=== PATIENT | female | born 1950 | race Caucasian/White ===

== ENCOUNTER → 2016-09-06 | Outpatient (CLI) | payer MEDICARE ==
[~2016-09-06] MED LIST: ALPRAZOLAM0.5 M3 PO; ANAPROX DS550 MG PO; ANTIVERT/2525 M1 PO; AVIDOXY100 MG PO; AVPAK AZITHROM250 MG PO; CARDIZEM LA240 MG PO; CITALOPRAM10 MG PO; CLINDAMYCIN HC300 MG PO; COLCHICINE0.6 M1 PO; COLSALIDE IMPR0.6 MG PO; COREG25 MG PO; COUMADIN5 M2; DIFLUCAN100 MG PO; DIGITEK0.25 MG PO; DIGOX0.125 MG PO; DILTIAZEM ER240 MG PO; ELIQUIS5 M1 PO; FUROSEMIDE40 MG PO; HYDROCODONE BIT1 T11 PO; INDOMETHACIN50 MG PO; K + POTASSIUM20 MEQ PO; K-TAB ER8 MEQ PO; LASIX20 MG PO; LASIX40 MG PO; LEVAQUIN750 MG PO; LISINOPRIL40 MG PO; LOVASTATIN10 MG PO; LOVENOX150 MG/ML SC; MYCOLOG CREAM 115 GM PO; NORCO 5-325 TA1 EACH PO; NYSTATIN CREAM15 GM T; OSCAL/D,OYSTER250 MG PO; PREDNICOT20 MG PO; PREDNISONE20 M1 PO; PREDNISONE20 MG PO; PREDNISONE5 MG PO; PROAIR HFA0.09 MG/AC IH; SOTALOL80 MG PO; VIBRAMYCIN100 MG PO; VITAMIN D2400 IU PO; WARFARIN SOD5 MG PO; WARFARIN SODIUM5 MG PO; XOPENEX0.63 MG INH; ZOFRAN ODT4 MG SL; ZOFRAN4 MG PO; ZYRTEC10 M3 PO; [UNRECOGNIZED DRUG - OTHER] PO; [UNRECOGNIZED DRUG - OTHER] PO
== END | disposition home or self-care (01) ==
LOC: RAD 07:31
DX: M19.011 Primary osteoarthritis, right shoulder (principal)

== ENCOUNTER 2016-11-21 08:34 | Emergency (ER) | payer MEDICARE ==
[~2016-11-21] VITALS: Ht 180.3 cm; Wt 135.6 kg
[2016-11-21 08:51] VITALS: BP 146/84
[2016-11-21 09:27] LABS: BASO % 0.6 % (0.0-1.0); EOS # 0.2 10*3/uL (0.0-0.4); EOS % 3.3 % (1.0-4.0); HEMATOCRIT 44.2 % (37.0-47.0); HEMOGLOBIN 14.7 g/dl (12.0-16.0); LYMPH # 1.8 10*3/uL (1.3-4.4); LYMPH % 25.6 % (27.0-41.0); MEAN CELL VOLUME 97.1 fl (81.0-99.0); MEAN CORPUSCULAR HGB 32.3 pg (27.0-31.0); MEAN CORPUSCULAR HGB CONC 33.3 g/dl (33.0-37.0); MEAN PLATELET VOLUME 10.2 fl (9.6-12.3); MONO # 0.6 10*3/uL (0.1-1.0); MONO % 8.9 % (3.0-9.0); NEUT # 4.3 10*3/uL (2.3-7.9); NEUT % 61.3 % (47.0-73.0); PLATELET COUNT AUTOMATED 210 10*3/uL (130-400); RED BLOOD COUNT 4.55 10*6/uL (4.10-5.10); RED CELL DISTRI WIDTH 13.1 % (0-14.5); WHITE BLOOD COUNT 7.1 10*3/uL (4.8-10.8)
[2016-11-21 09:32] LABS: PROTHROMBIN TIME 10.9 SECONDS (9.0-12.4)
[2016-11-21 09:39] LABS: ALBUMIN 3.2 gm/dl (3.1-4.5); ALKALINE PHOSPHATASE 100 U/L (45-117); BILIRUBIN, TOTAL 0.5 mg/dl (0.2-1.0); BUN 14 mg/dl (7-24); C-REACTIVE PROTEIN 0.48 MG/DL (0-0.3); CARBON DIOXIDE 27 mmol/L (21-32); CHLORIDE 110 mmol/L (98-107); EST GLOM FILT AFRICAN AMERICAN > 60 ml/min; GLUCOSE 83 mg/dL (65-99); MAGNESIUM 2.2 mg/dL (1.5-2.1); POTASSIUM 4.2 mmol/L (3.5-5.1); SGOT/AST 12 IU/L (3-35); SGPT/ALT 13 U/L (12-78); SODIUM 141 mmol/L (136-145); TOTAL PROTEIN 6.6 gm/dL (6.4-8.2); URIC ACID 6.1 mg/dL (2.6-6.0)
[2016-11-21] MEDS ORDERED: HYDROCODONE BIT1 T11 PO (11:20)
[2016-11-21] MEDS ORDERED: PREDNISONE20 M1 PO (11:20)
== END 2016-11-21 11:41 | disposition home or self-care (01) ==
LOC: ED 08:34
PROVIDERS: Emergency Medicine
DX: M79.671 Pain in right foot (principal); M10.9 Gout, unspecified; I48.91 Unspecified atrial fibrillation; Z88.0 Allergy status to penicillin; Z88.1 Allergy status to other antibiotic agents; Z88.8 Allergy status to other drugs, medicaments and biological substances; Z79.899 Other long term (current) drug therapy

== ENCOUNTER 2017-06-14 16:30 | Emergency (ER) | payer MEDICARE ==
[~2017-06-14] VITALS: Ht 154.9 cm; Wt 135.6 kg
[2017-06-14 17:37] LABS: BASO # 0.1 10*3/uL (0.0-0.1); BASO % 0.7 % (0.0-1.0); EOS # 0.2 10*3/uL (0.0-0.4); HEMATOCRIT 45.2 % (37.0-47.0); HEMOGLOBIN 15.2 g/dl (12.0-16.0); LYMPH # 1.4 10*3/uL (1.3-4.4); LYMPH % 15.7 % (27.0-41.0); MEAN CELL VOLUME 94.4 fl (81.0-99.0); MEAN CORPUSCULAR HGB 31.7 pg (27.0-31.0); MEAN CORPUSCULAR HGB CONC 33.6 g/dl (33.0-37.0); MEAN PLATELET VOLUME 10.2 fl (9.6-12.3); MONO # 0.9 10*3/uL (0.1-1.0); MONO % 10.7 % (3.0-9.0); NEUT # 6.1 10*3/uL (2.3-7.9); NEUT % 70.6 % (47.0-73.0); PLATELET COUNT AUTOMATED 200 10*3/uL (130-400); RED BLOOD COUNT 4.79 10*6/uL (4.10-5.10); RED CELL DISTRI WIDTH 13.9 % (0-14.5); WHITE BLOOD COUNT 8.6 10*3/uL (4.8-10.8)
[2017-06-14 17:48] LABS: ACT PARTIAL THROMBO TIME 24.4 SECONDS (20.8-31.5)
[2017-06-14 17:53] LABS: ALBUMIN 3.6 gm/dl (3.1-4.5); ALKALINE PHOSPHATASE 96 U/L (45-117); BUN 12 mg/dl (7-24); CHLORIDE 102 mmol/L (98-107); CREATININE 0.94 mg/dL (0.55-1.02); SGOT/AST 11 IU/L (3-35); SGPT/ALT 18 U/L (12-78); SODIUM 138 mmol/L (136-145); TOTAL PROTEIN 6.9 gm/dL (6.4-8.2); TROPONIN I < 0.015 ng/ml (<0.045)
[2017-06-14 19:37] VITALS: BP 163/82
== END 2017-06-14 19:13 | disposition home or self-care (01) ==
LOC: ED 16:30
PROVIDERS: Emergency Medicine
DX: R05 Cough (principal); I48.91 Unspecified atrial fibrillation; M10.9 Gout, unspecified; Z79.899 Other long term (current) drug therapy; Z88.0 Allergy status to penicillin; Z90.710 Acquired absence of both cervix and uterus; Z98.890 Other specified postprocedural states; Z90.49 Acquired absence of other specified parts of digestive tract; Z87.01 Personal history of pneumonia (recurrent); Z88.8 Allergy status to other drugs, medicaments and biological substances; Z88.1 Allergy status to other antibiotic agents; Z95.0 Presence of cardiac pacemaker

== ENCOUNTER → 2017-08-03 | Outpatient (CLI) | payer MEDICARE ==
[~2017-08-03] MED LIST changes: +DOXYCYCLINE100 M3 PO; +MEDROL DOSEPAK4 MG PO; +TESSALON PERLE100 M1 PO
== END | disposition home or self-care (01) ==
LOC: RAD 12:38 → MAMMO 13:30
DX: Z13.820 Encounter for screening for osteoporosis (principal); E55.9 Vitamin D deficiency, unspecified; Z78.0 Asymptomatic menopausal state; Z90.722 Acquired absence of ovaries, bilateral

== ENCOUNTER 2017-08-06 10:32 | Emergency (ER) | payer MEDICARE ==
[~2017-08-06] VITALS: Ht 175.2 cm; Wt 113.4 kg
[~2017-08-06 10:32] MED LIST changes: -DOXYCYCLINE100 M3 PO; -MEDROL DOSEPAK4 MG PO; -TESSALON PERLE100 M1 PO
[2017-08-06 11:03] VITALS: BP 120/72
[2017-08-06 11:10] LABS: BASO # 0.1 10*3/uL (0.0-0.1); BASO % 0.4 % (0.0-1.0); EOS # 0.3 10*3/uL (0.0-0.4); EOS % 2.5 % (1.0-4.0); HEMATOCRIT 46.1 % (37.0-47.0); HEMOGLOBIN 15.2 g/dl (12.0-16.0); LYMPH % 17.2 % (27.0-41.0); MEAN CELL VOLUME 94.5 fl (81.0-99.0); MEAN CORPUSCULAR HGB 31.1 pg (27.0-31.0); MEAN PLATELET VOLUME 10.4 fl (9.6-12.3); MONO % 8.7 % (3.0-9.0); NEUT # 8.3 10*3/uL (2.3-7.9); NEUT % 70.9 % (47.0-73.0); PLATELET COUNT AUTOMATED 233 10*3/uL (130-400); RED BLOOD COUNT 4.88 10*6/uL (4.10-5.10); RED CELL DISTRI WIDTH 13.3 % (0-14.5); WHITE BLOOD COUNT 11.6 10*3/uL (4.8-10.8)
[2017-08-06 11:22] LABS: ALBUMIN 3.4 gm/dl (3.1-4.5); ALKALINE PHOSPHATASE 95 U/L (45-117); BUN 11 mg/dl (7-24); CHLORIDE 102 mmol/L (98-107); CREATININE 0.97 mg/dL (0.55-1.02); POTASSIUM 4.1 mmol/L (3.5-5.1); SGOT/AST 9 IU/L (3-35); SGPT/ALT 13 U/L (12-78); SODIUM 138 mmol/L (136-145); TOTAL PROTEIN 7.2 gm/dL (6.4-8.2)
[2017-08-06] MEDS ORDERED: DOXYCYCLINE100 M3 PO (11:51)
[2017-08-06] MEDS ORDERED: TESSALON PERLE100 M1 PO (11:51)
[2017-08-06] MEDS ORDERED: MEDROL DOSEPAK4 MG PO (11:51)
== END 2017-08-06 11:57 | disposition home or self-care (01) ==
LOC: ED 10:32
PROVIDERS: Nurse Practitioner Family
DX: J01.00 Acute maxillary sinusitis, unspecified (principal); R09.81 Nasal congestion; R05 Cough; J06.9 Acute upper respiratory infection, unspecified; I50.9 Heart failure, unspecified; Z90.710 Acquired absence of both cervix and uterus; Z98.890 Other specified postprocedural states; Z90.49 Acquired absence of other specified parts of digestive tract; Z79.899 Other long term (current) drug therapy; Z88.0 Allergy status to penicillin; Z88.8 Allergy status to other drugs, medicaments and biological substances

== ENCOUNTER 2017-10-23 16:24 | Emergency (ER) | payer MEDICARE ==
[~2017-10-23] VITALS: Ht 180.3 cm; Wt 137.0 kg
[~2017-10-23 16:24] MED LIST changes: +DOXYCYCLINE100 M3 PO; +MEDROL DOSEPAK4 MG PO; +TESSALON PERLE100 M1 PO
[2017-10-23 16:26] VITALS: BP 112/73
[2017-10-23] MEDS ORDERED: NORCO 5-325 TA1 EACH PO (18:54)
== END 2017-10-23 19:04 | disposition home or self-care (01) ==
LOC: ED 16:24
DX: S49.91XA Unspecified injury of right shoulder and upper arm, initial encounter (principal); S59.901A Unspecified injury of right elbow, initial encounter; I48.91 Unspecified atrial fibrillation; I50.9 Heart failure, unspecified; Z90.710 Acquired absence of both cervix and uterus; Z98.890 Other specified postprocedural states; Z90.49 Acquired absence of other specified parts of digestive tract; Z79.899 Other long term (current) drug therapy; Z88.0 Allergy status to penicillin; Z88.1 Allergy status to other antibiotic agents; Z88.8 Allergy status to other drugs, medicaments and biological substances; W07.XXXA Fall from chair, initial encounter; Y93.89 Activity, other specified; Y92.89 Other specified places as the place of occurrence of the external cause; Y99.9 Unspecified external cause status

== ENCOUNTER 2018-02-19 14:47 | Emergency (ER) | payer MEDICARE ==
[~2018-02-19] VITALS: Ht 180.3 cm; Wt 136.1 kg
[~2018-02-19 14:47] MED LIST changes: +MACROBID100 M1 PO
[2018-02-19 15:41] LABS: BASO # 0.1 10*3/uL (0.0-0.1); BASO % 0.7 % (0.0-1.0); EOS # 0.4 10*3/uL (0.0-0.4); EOS % 5.4 % (1.0-4.0); HEMOGLOBIN 14.9 g/dl (12.0-16.0); LYMPH # 2.3 10*3/uL (1.3-4.4); LYMPH % 33.4 % (27.0-41.0); MEAN CELL VOLUME 94.9 fl (81.0-99.0); MEAN CORPUSCULAR HGB 31.4 pg (27.0-31.0); MEAN CORPUSCULAR HGB CONC 33.1 g/dl (33.0-37.0); MEAN PLATELET VOLUME 10.3 fl (9.6-12.3); MONO # 0.7 10*3/uL (0.1-1.0); MONO % 9.5 % (3.0-9.0); NEUT # 3.5 10*3/uL (2.3-7.9); NEUT % 50.9 % (47.0-73.0); PLATELET COUNT AUTOMATED 200 10*3/uL (130-400); RED BLOOD COUNT 4.74 10*6/uL (4.10-5.10); RED CELL DISTRI WIDTH 13.5 % (0-14.5); WHITE BLOOD COUNT 6.8 10*3/uL (4.8-10.8)
[2018-02-19 15:55] LABS: ALBUMIN 3.6 gm/dl (3.1-4.5); ALKALINE PHOSPHATASE 95 U/L (45-117); BUN 14 mg/dl (7-24); CHLORIDE 105 mmol/L (98-107); CREATININE 0.96 mg/dL (0.55-1.02); POTASSIUM 4.5 mmol/L (3.5-5.1); SGOT/AST 13 IU/L (3-35); SGPT/ALT 18 U/L (12-78); SODIUM 139 mmol/L (136-145); TOTAL PROTEIN 6.9 gm/dL (6.4-8.2)
[2018-02-19 16:15] LABS: BILIRUBIN NEGATIVE (NEGATIVE); BLOOD 3+ (NEGATIVE); CLARITY CLOUDY (CLEAR); COLOR BROWN (YELLOW); GLUCOSE NEGATIVE (NEGATIVE); KETONE NEGATIVE (NEGATIVE); LEUKO ESTERASE 1+ (NEGATIVE); NITRITE NEGATIVE (NEGATIVE); SPECIFIC GRAVITY 1.015 (1.005-1.030); UROBILINOGEN 0.2 E.U./dl (0.2-1.0)
[2018-02-19 16:24] VITALS: BP 181/96
[2018-02-19 16:25] LABS: RBC TNTC rbc/hpf (0-2)
[2018-02-19] MEDS ORDERED: SEPTDS PO (17:39)
[2018-03-08] MEDS ORDERED: K-TAB20 MEQ PO (07:13)
[2018-03-08] MEDS ORDERED: LASIX40 MG PO (07:13)
== END 2018-02-19 17:45 | disposition home or self-care (01) ==
LOC: ED 14:47
PROVIDERS: Emergency Medicine
DX: N39.0 Urinary tract infection, site not specified (principal); R31.9 Hematuria, unspecified; I48.91 Unspecified atrial fibrillation; I50.9 Heart failure, unspecified; Z95.0 Presence of cardiac pacemaker; Z88.0 Allergy status to penicillin; Z88.1 Allergy status to other antibiotic agents; Z88.8 Allergy status to other drugs, medicaments and biological substances; Z79.2 Long term (current) use of antibiotics; Z79.899 Other long term (current) drug therapy; Z90.710 Acquired absence of both cervix and uterus; Z90.49 Acquired absence of other specified parts of digestive tract

== ENCOUNTER → 2018-03-05 | Outpatient (CLI) | payer MEDICARE ==
[~2018-03-05] MED LIST changes: +K-TAB20 MEQ PO; +SEPTDS PO
== END | disposition home or self-care (01) ==
LOC: CT 02-27 10:00
DX: N20.0 Calculus of kidney (principal); R31.9 Hematuria, unspecified

== ENCOUNTER 2018-04-29 23:20 | Emergency (ER) | payer MEDICARE ==
[~2018-04-29] VITALS: Ht 434.3 cm; Wt 135.2 kg
[2018-04-29 23:23] VITALS: BP 158/76
[2018-04-30] LABS: BASO # 0.1 10*3/uL (0.0-0.1); BASO % 0.9 % (0.0-1.0); EOS # 0.4 10*3/uL (0.0-0.4); EOS % 4.5 % (1.0-4.0); HEMATOCRIT 42.3 % (37.0-47.0); HEMOGLOBIN 14.1 g/dl (12.0-16.0); LYMPH # 2.2 10*3/uL (1.3-4.4); LYMPH % 27.7 % (27.0-41.0); MEAN CELL VOLUME 95.9 fl (81.0-99.0); MEAN CORPUSCULAR HGB CONC 33.3 g/dl (33.0-37.0); MEAN PLATELET VOLUME 10.7 fl (9.6-12.3); MONO # 0.7 10*3/uL (0.1-1.0); MONO % 8.3 % (3.0-9.0); NEUT # 4.6 10*3/uL (2.3-7.9); NEUT % 58.3 % (47.0-73.0); PLATELET COUNT AUTOMATED 196 10*3/uL (130-400); RED BLOOD COUNT 4.41 10*6/uL (4.10-5.10); RED CELL DISTRI WIDTH 13.9 % (0-14.5)
[2018-04-30 00:12] LABS: ALBUMIN 3.3 gm/dl (3.1-4.5); ALKALINE PHOSPHATASE 110 U/L (45-117); BUN 18 mg/dl (7-24); CHLORIDE 108 mmol/L (98-107); CREATININE 0.89 mg/dL (0.55-1.02); POTASSIUM 4.2 mmol/L (3.5-5.1); SGOT/AST 11 IU/L (3-35); SGPT/ALT 15 U/L (12-78); SODIUM 140 mmol/L (136-145); TOTAL PROTEIN 6.8 gm/dL (6.4-8.2)
[2018-04-30] MEDS ORDERED: KETOROLAC10 MG PO (00:34)
[2018-06-05] MEDS ORDERED: PERCOCET 5-3251 EACH PO (16:13)
[2018-06-05] MEDS ORDERED: ZOFRAN4 MG PO (16:13)
[2018-06-05] MEDS ORDERED: FLOMAX0.4 MG PO (16:14)
== END 2018-04-30 01:14 | disposition home or self-care (01) ==
LOC: ED 23:20
PROVIDERS: Student in an Organized Health Care Education/Training Program
DX: N20.1 Calculus of ureter (principal); I48.91 Unspecified atrial fibrillation; I50.9 Heart failure, unspecified; Z88.0 Allergy status to penicillin; Z88.8 Allergy status to other drugs, medicaments and biological substances; Z88.1 Allergy status to other antibiotic agents; Z79.2 Long term (current) use of antibiotics; Z79.899 Other long term (current) drug therapy; Z90.710 Acquired absence of both cervix and uterus; Z90.49 Acquired absence of other specified parts of digestive tract

== ENCOUNTER 2018-05-08 22:02 | Inpatient (IN) | payer MEDICARE ==
--- NOTE | ~2018-05-08 | WRIGHTHP ---
[place], [place] PATIENT HISTORY AND PHYSICAL EXAM NAME: LIZETH MARCANO [facility] #: [id number] UNIT #: [id number] ROOM: [facility] DOCTOR: LAURIE SCHNEIDER MD BIRTHDATE: [birth year] DOS: HISTORY OF PRESENT ILLNESS: The patient is a 67-year-old female with a past medical history of; 1. Chronic atrial fibrillation. 2. Pacemaker placement in 2011. 3. Bilateral knee replacements for primary osteoarthritis. 4. Morbid obesity. 5. Mixed hyperlipidemia. 6. Benign essential hypertension. The patient presented to the Emergency Department with recurrent complaints of chest pressure sensation lasting a few minutes at a time. The patient was admitted and her cardiac enzymes were checked to be negative. The patient was started on a athletic monitor and her EKG showed paced rhythm. No increasing shortness of breath, no other GI or urinary symptoms. REVIEW OF SYSTEMS: RESPIRATORY: No increasing shortness of breath. GASTROINTESTINAL: No nausea, vomiting, diarrhea or constipation. CARDIOVASCULAR: Complains of recurrent chest pains. FAMILY HISTORY: Noncontributory. HOME MEDICATIONS: Aspirin, apixaban, Coreg, lisinopril, simvastatin. PHYSICAL EXAMINATION: GENERAL: Alert and oriented x 3, in no visible distress. The patient is morbidly obese. VITAL SIGNS: Blood pressure 152/93, heart rate 73 beats per minute, breathing 18 times, temperature 98.1 degrees Fahrenheit. HEENT AND NECK: Extraocular movements are intact. Sclerae are anicteric. Oral mucosa is moist and clean. No obvious facial weakness. Neck is supple without any lymphadenopathy. No thyromegaly. No JVD. No carotid arterial bruits. LUNGS: Clear to auscultation. No wheezing. No rhonchi. CARDIOVASCULAR SYSTEM: Heart rate is regular in rate and rhythm. S1 and S2 normally audible. No significant murmur or any other abnormal cardiac sounds. ABDOMEN: Soft, nontender. No obvious organomegaly. Bowel sounds are present. No obvious herniation. EXTREMITIES: Without significant cyanosis or edema. Warm to touch. CENTRAL NERVOUS SYSTEM: Alert and oriented x 3. Cranial nerves II-XII are intact. Speech is normal. The patient is able to move all extremities. Normal muscle strength. Deep tendon reflexes are equal on both sides. Plantars were downgoing. LABORATORY DATA: Ultrasound of the abdomen without acute abnormality, signs of cholecystectomy. Troponin I levels were normal. Chest x-ray without any acute abnormality except for bibasilar patchy atelectasis. [place], [place] PATIENT HISTORY AND PHYSICAL EXAM NAME: [facility] [id number] UNIT #: [id number] ROOM: [facility] DOCTOR: LAURIE SCHNEIDER MD BIRTHDATE: [birth year] IMPRESSION: 1. The patient with recurrent chest pains from uncertain etiology. Cardiac stress test in progress. Cardiac enzymes were negative. 2. Recurrent hematuria from history of urinary stones and recurrent pains. The patient has had hematuria again for 3 days now and is followed by her urologist in [place]. Ultrasound of the abdomen and pelvis did not show any acute abnormality, no signs of hydronephrosis. The patient's hemoglobin has been normal at 13.6. 3. Benign essential hypertension. Blood pressure is being treated and controlled and followed. 4. History of chronic atrial fibrillation. The patient anticoagulated with apixaban, which was continued. If the patient's cardiac stress testing is normal, she can be discharged to home to follow up with her urologist as soon as possible. There is no urologist available at [facility] for inpatient care and consults. LAURIE SCHNEIDER MD CM:HISPHYS:PATIENT HISTORY AND PHYSICAL EXAMINATION [id number] LAURIE SCHNEIDER MD 05/09/18 1157 interface
--- NOTE | ~2018-05-08 | EKG ---
[place], [place] ELECTROCARDIOGRAM REPORT NAME: LIZETH MARCANO UNIT #: [id number] ROOM: 517 DOCTOR: CRISTIAN DRAFT REPORT BIRTHDATE: [birth year] [facility] Test Date: 2018-05-09 Test Time: 00:56:15 Pat Name: LIZETH MARCANO Department: 5E Room: 517 Gender: F Grinder Set Up Operator Internal: Gaurav Sheppard : 1950 Requested By: CARLOS VALDEZ Order Number: [id number] Reading MD: Elisabeth Cantu MD Measurements Intervals [place] Rate: 75 P: 90 [place]: 268 QRS: -40 QRSD: 122 T: 159 QT: 468 QTc: 523 Interpretive Statements Ventricular-paced complexes No further analysis attempted due to paced rhythm Compared to ECG 03/08/2018 05:42:53 Atrial fibrillation no longer present Electronically Signed On 05-09-2018 9:38:55 PST by Elisabeth Cantu MD CM:EKGRPT:ELECTROCARDIOGRAM REPORT [id number] CARLOS GLORIA DRAFT REPORT CARLOS VALDEZ DO
--- NOTE | ~2018-05-08 | DS ---
[place], [place] DISCHARGE SUMMARY NAME: LIZETH MARCANO UNIT #: [id number] ROOM: 517 DOCTOR: LAURIE SCHNEIDER MD BIRTHDATE: [birth year] DOS: 05/10/2018 DISCHARGE DIAGNOSES: 1. Chest pain from uncertain etiology. The patient with nonreversible ischemia on cardiac stress testing. 2. Recurrent hematuria from urinary stones. The patient to follow up with her neurologist. 3. Benign essential hypertension. 4. History of chronic atrial fibrillation with anticoagulation with apixaban. Pacemaker placement in 2011. 5. Bilateral knee replacement for primary osteoarthritis. 6. Morbid obesity. 7. Mixed hyperlipidemia. 8. Benign essential hypertension. HOSPITAL COURSE: The patient was admitted for recurrent chest pains and taken for a cardiac stress test, which was considered to be without any risk for reversible ischemic areas by Dr. Cantu. The patient to be discharged to home. Recurrent hematuria. The patient also anticoagulated with apixaban. The patient has history of urinary stones and will be evaluated by her urologist. We have no urologist available at [facility]. Ultrasound of the abdomen and pelvis showed no signs of hydronephrosis or any other acute abnormality. Hemoglobin was normal at 13.6. No anemia from hematuria. Benign essential hypertension. Blood pressure was monitored, treated and controlled. Chronic atrial fibrillation. The patient anticoagulated with apixaban, which was continued. LABORATORY DATA: Echocardiogram is showing 55%-60% left ventricular ejection fraction. Cardiac stress test results as mentioned above. Cardiac enzymes were negative. DISCHARGE MANAGEMENT: Simvastatin 40 mg a day, lisinopril 40 mg a day, Coreg 25 mg b.i.d., apixaban 5 mg b.i.d. Follow up with her PCP, Dr. Gage, next week. [place], [place] DISCHARGE SUMMARY NAME: LIZETH MARCANO UNIT #: [id number] ROOM: 517 DOCTOR: LAURIE SCHNEIDER MD BIRTHDATE: [birth year] LAURIE SCHNEIDER MD CM:DISCHARG [id number] LAURIE SCHNEIDER MD 05/10/18 2144 interface
--- NOTE | ~2018-05-08 | EKG ---
[place], [place] ELECTROCARDIOGRAM REPORT NAME: LIZETH MARCANO UNIT #: [id number] ROOM: 517 DOCTOR: CRISTIAN DRAFT REPORT BIRTHDATE: [address] [facility] Test Date: 2018-05-09 Test Time: 04:06:23 Pat Name: LIZETH MARCANO Department: 5E Room: 517 Gender: F Pbx Manager: Gaurav Sheppard : 1950 Requested By: CARLOS VALDEZ Order Number: [id number] Reading MD: Elisabeth Cantu MD Measurements Intervals [place] Rate: 80 P: 16 [place]: 214 QRS: -51 QRSD: 149 T: 145 QT: 431 QTc: 498 Interpretive Statements Ventricular-paced complexes No further analysis attempted due to paced rhythm Compared to ECG 03/08/2018 05:42:53 Atrial fibrillation no longer present Electronically Signed On 05-09-2018 9:39:07 PST by Elisabeth Cantu MD CM:EKGRPT:ELECTROCARDIOGRAM REPORT [id number] CARLOS GLORIA DRAFT REPORT CALROS VALDEZ DO
--- NOTE | ~2018-05-08 | ST ---
[place], [place] EXERCISE STRESS TEST REPORT [id number] UNIT #: [id number] ROOM: 517 DOCTOR: LAURIE SCHNEIDER MD BIRTHDATE: [birth year] DOS: 05/09/2018 LEXISCAN CARDIOLITE CARDIAC STRESS TEST The patient is a 67-year-old female, 71 inches tall, weighing 328 pounds, admitted to [facility] presently for complaints of recurrent chest pains. The patient was tested with a Lexiscan Cardiolite stress test and she mostly remained asymptomatic except for some nausea. The patient's baseline EKG showed a paced rhythm at the heart rate of 71 beats per minute. During the Lexiscan infusion and recovery phase, the patient did not develop any significant EKG abnormality compatible with myocardial ischemia. The patient was infused with nuclear injection at 40 seconds after the Lexiscan injection. IMPRESSION: 1. Paced rhythm at 71 beats per minute. The patient asymptomatic except for some nausea. 2. Nuclear scan results to be reported by Dr. Cantu later today. LAURIE SCHNEIDER MD CM:STRESS:EXERCISE STRESS TEST REPORT [id number] LAURIE SCHNEIDER MD
--- NOTE | ~2018-05-08 | EKG ---
[place], [place] ELECTROCARDIOGRAM REPORT NAME: LIZETH MARCANO UNIT #: [id number] ROOM: 517 DOCTOR: CRISTIAN DRAFT REPORT BIRTHDATE: [birth year] [facility] Test Date: 2018-05-08 Test Time: 22:10:02 Pat Name: LIZETH MARCANO Department: ER Room: 517 Gender: F Program Director Group Work: EKG.MO : 1950 Requested By: CARLOS VALDEZ Order Number: [id number] Reading MD: Elisabeth Cantu MD Measurements Intervals [place] Rate: 72 P: 0 RI: 61 QRS: -70 QRSD: 163 T: 108 QT: 443 QTc: 485 Interpretive Statements Ventricular-paced rhythm No further analysis attempted due to paced rhythm Compared to ECG 03/08/2018 05:42:53 Atrial fibrillation no longer present Electronically Signed On 05-09-2018 9:38:49 PST by Elisabeth Cantu MD CM:EKGRPT:ELECTROCARDIOGRAM REPORT [id number] CARLOS GLORIA DRAFT REPORT CARLOS VALDEZ DO
[~2018-05-08 22:02] MED LIST changes: +KETOROLAC10 MG PO
[2018-05-08 22:07] VITALS: BP 121/85
[2018-05-08 22:23] LABS: BASO # 0.1 10*3/uL (0.0-0.1); BASO % 0.9 % (0.0-1.0); EOS # 0.4 10*3/uL (0.0-0.4); EOS % 5.5 % (1.0-4.0); HEMOGLOBIN 13.6 g/dl (12.0-16.0); LYMPH % 27.4 % (27.0-41.0); MEAN CELL VOLUME 97.9 fl (81.0-99.0); MEAN CORPUSCULAR HGB 31.7 pg (27.0-31.0); MEAN CORPUSCULAR HGB CONC 32.4 g/dl (33.0-37.0); MEAN PLATELET VOLUME 10.8 fl (9.6-12.3); MONO # 0.6 10*3/uL (0.1-1.0); MONO % 8.2 % (3.0-9.0); NEUT # 4.3 10*3/uL (2.3-7.9); NEUT % 57.7 % (47.0-73.0); PLATELET COUNT AUTOMATED 222 10*3/uL (130-400); RED BLOOD COUNT 4.29 10*6/uL (4.10-5.10); RED CELL DISTRI WIDTH 14.2 % (0-14.5); WHITE BLOOD COUNT 7.4 10*3/uL (4.8-10.8)
[2018-05-08 22:34] LABS: ACT PARTIAL THROMBO TIME 26.1 SECONDS (20.8-31.5)
[2018-05-08 22:36] VITALS: BP 124/82
--- NOTE | 2018-05-08 22:39 | NUR ---
PT REFUED ASA.
[2018-05-08 22:45] LABS: ALBUMIN 3.6 gm/dl (3.1-4.5); ALKALINE PHOSPHATASE 93 U/L (45-117); BUN 17 mg/dl (7-24); CHLORIDE 109 mmol/L (98-107); CREATININE 0.87 mg/dL (0.55-1.02); POTASSIUM 4.3 mmol/L (3.5-5.1); SGOT/AST 15 IU/L (3-35); SGPT/ALT 18 U/L (12-78); SODIUM 142 mmol/L (136-145); TOTAL PROTEIN 6.5 gm/dL (6.4-8.2)
[2018-05-08 22:50] LABS: TROPONIN I < 0.015 ng/ml (<0.045)
--- NOTE | 2018-05-08 22:50 | NUR ---
PATIENT LAYING IN BED AWAKE, AT BEDSIDE. VSS. RESP EASY AND NONLABORED. NO DISTRESS NOTED. RN WILL CONT TO MONITOR
[2018-05-08 23:16] VITALS: BP 141/72
[2018-05-09] VITALS: BP 152/93
[2018-05-09 00:10] VITALS: BP 152/93
--- NOTE | 2018-05-09 00:10 | NUR ---
A 67, admitted to , under the services of Dr. WYATT TREVINO,LAURIE Fields with a diagnosis of CHEST PAIN. Chief complaint is MIDSTERSNAL CHEST PAIN. Patient arrived via stretcher from ER. Monitor applied. Initial assessment completed. Vital signs taken and recorded. DR. WYATT TREVINO,LAURIE Fields notified of admission to the unit. Orders received. See assessment for past medical history, medications and allergies. Patient and/or family oriented to unit. [facility] visitation policy reviewed. Clothing/patient valuable form completed. ROSSANA MACKENZIE
[2018-05-09] MEDS ORDERED: ELIQUIS5 M1 PO (00:36)
--- NOTE | 2018-05-09 05:33 | NUR ---
PATIENT UP AND BATHED THIS MORNING AND IS AWARE OF OF ALL TESTING PATIENT HAS HAD SEVERAL TRIPS TO THE BATHROOM AND EVRYTIME SHE HAS URINATED AND HAS BEEN RED I HAVE BEEN UNABLE TO SEND A SPECIMEN TO LAB DUE TO ALL BLOOD.
--- NOTE | 2018-05-09 07:43 | NUR ---
PT DOWN FOR ULTRASOUND AND STRESS TEST AT THIS TIME.
--- NOTE | 2018-05-09 10:11 | NUR ---
INFORMED CONSENT SIGNED FOR LEXISCAN STRESS TEST WITH DR. SCHNEIDER. RESTING EKG PACED, HR 71, BP 140/98. PULSE OX 95% AND BREATH SOUNDS DECREASED BILATERALLY. COMPLETED ONE MINUTE OF LEXISCAN PROTOCOL RECEIVING LEXISCAN 0.4MG OVER 10 SECONDS. NO ARRHYTHMIAS OR ST CHANGES NOTED. PT DID C/O SOB. LAST RECOVERY HR 73, BP 136/80. WAITING NUCLEAR SCANNING IN STABLE CONDITION.
--- NOTE | 2018-05-09 11:34 | NUR ---
PT BACK TO ROOM. VSS.
[2018-05-09 12:00] VITALS: BP 154/95
--- NOTE | 2018-05-09 14:00 | NUR ---
Lock Installer in to talk to patient. Patient states lives at HOME with . There are SOME steps in the home. Physician: FABIO Pharmacy: [facility] Home health services: NONE Patient's level of ADLs: INDEPENDENT Patient has working utilities: YES DME: NONE Follow-up physician's appointment after d/c: WILL BE MADE AFTER DC Does patient want to access PORTAL?: N Discharge plan PT STATES SHE LIVES AT HOME WITH HER AND IS INDEPENDENT IN CARE. DENIES NEEDS FOR HOME NEEDS. PT CAN BE DISCHARGED HOME WHEN MEDICALLY STABLE.. JESS LEO
[2018-05-09 16:00] VITALS: BP 141/89
[2018-05-09 20:00] VITALS: BP 147/65
[2018-05-09 22:30] VITALS: BP 142/78
--- NOTE | 2018-05-09 22:30 | NUR ---
TOOK OVER CARE OF PT, ASSESSMENT COMPLETE. BLOOD PRESSURE OBTAINED AND WNL. NO COMPLAINTS VOICED BY PT. PT ALERT, PLEASANT, AND COOPERATIVE WITH CARE. RESPIRATIONS EASY AND UNLABORED ON ROOM AIR AT THIS TIME. WILL CONTINUE TO MONITOR. CALL LIGHT IN REACH.
[2018-05-10] VITALS: BP 131/58
[2018-05-10 05:01] LABS: BILIRUBIN NEGATIVE (NEGATIVE); BLOOD 3+ (NEGATIVE); CLARITY SL CLOUDY (CLEAR); COLOR YELLOW (YELLOW); GLUCOSE NEGATIVE (NEGATIVE); KETONE NEGATIVE (NEGATIVE); LEUKO ESTERASE 1+ (NEGATIVE); NITRITE NEGATIVE (NEGATIVE); UROBILINOGEN 0.2 E.U./dl (0.2-1.0)
[2018-05-10 05:16] LABS: RBC 41-50 rbc/hpf (0-2)
[2018-05-10 05:17] LABS: BACTERIA TRACE
[2018-05-10 08:00] VITALS: BP 148/78; BP 151/89
--- NOTE | 2018-05-10 08:59 | NUR ---
DR FELIPE'S OFFICE CALLED WITH NEW CONSULT.
--- NOTE | 2018-05-10 09:15 | NUR ---
PT STATES DR MCCARTHY TOLD HER SHE MAY NEED TRANSFERRED TO [facility] FOR HEART CATH. WAITING ON MANAGER FIELD SERVICES TO VISIT. WILL CONTINUE TO FOLLOW.
[2018-05-10 11:26] VITALS: BP 147/77
--- NOTE | 2018-05-10 12:00 | NUR ---
DR FELIPE IN TO SPEAK WITH PATIENT.
--- NOTE | 2018-05-10 14:52 | NUR ---
Shift chart check completed.
--- NOTE | 2018-05-10 15:00 | NUR ---
PATIENT COMPLAINING ABOUT ITCHING AROUND EKG PATCHES. SKIN IS RED AND IRRITATED. DR MCCARTHY CALLED- AND OK'D TO DISCONTINUE C D AREA SUPERVISOR.
--- NOTE | 2018-05-10 15:15 | NUR ---
SOFT IRON INSPECTOR TAKEN OFF ORDERED BY DR MCCARTHY.
[2018-05-10 16:00] VITALS: BP 149/75
--- NOTE | 2018-05-10 19:40 | NUR ---
Discharge instructions reviewed with patient/family. Patient receptive and verbalizes understanding. Follow-up care arranged. Written instructions given to patient/family. PATIENT DISCHARGED TO HOME WITH DAUGHTER VIA WHEELCHAIR. MARIA DEL ROSARIO LEO
[2018-06-05] MEDS ORDERED: ZOFRAN4 MG PO (16:13)
[2018-06-05] MEDS ORDERED: PERCOCET 5-3251 EACH PO (16:13)
[2018-06-05] MEDS ORDERED: FLOMAX0.4 MG PO (16:14)
== END 2018-05-10 19:40 | disposition other institution (70) | DRG 313 ==
LOC: ED 22:02 → EDHOLD 23:00 → 5E 23:00
PROVIDERS: Student in an Organized Health Care Education/Training Program; ADMIT Internal Medicine
PROC: 4A02XM4 Measurement of Cardiac Total Activity, External Approach (ICD-10-PCS; principal; 2018-05-09)
PROC: 3E073KZ Introduction of Other Diagnostic Substance into Coronary Artery, Percutaneous Approach (ICD-10-PCS; principal; 2018-05-09)
DX: R07.89 Other chest pain (principal); I42.9 Cardiomyopathy, unspecified; J98.11 Atelectasis; Z68.42 Body mass index [BMI] 45.0-49.9, adult; N02.9 Recurrent and persistent hematuria with unspecified morphologic changes; I48.2 Chronic atrial fibrillation; I11.0 Hypertensive heart disease with heart failure; I50.9 Heart failure, unspecified; M10.9 Gout, unspecified; N20.9 Urinary calculus, unspecified; Z96.653 Presence of artificial knee joint, bilateral; E66.01 Morbid (severe) obesity due to excess calories; I08.0 Rheumatic disorders of both mitral and aortic valves; E78.2 Mixed hyperlipidemia; I48.0 Paroxysmal atrial fibrillation; Z95.0 Presence of cardiac pacemaker; Z88.0 Allergy status to penicillin; Z88.8 Allergy status to other drugs, medicaments and biological substances; Z88.1 Allergy status to other antibiotic agents; Z87.01 Personal history of pneumonia (recurrent); Z87.440 Personal history of urinary (tract) infections; Z90.49 Acquired absence of other specified parts of digestive tract; Z90.710 Acquired absence of both cervix and uterus; Z83.3 Family history of diabetes mellitus; Z82.49 Family history of ischemic heart disease and other diseases of the circulatory system; Z84.89 Family history of other specified conditions; Z79.899 Other long term (current) drug therapy

== ENCOUNTER 2019-02-13 11:42 | Emergency (ER) | payer MEDICARE ==
[~2019-02-13] VITALS: Wt 136.1 kg
[~2019-02-13 11:42] MED LIST changes: +FLOMAX0.4 MG PO; +PERCOCET 5-3251 EACH PO
[2019-02-13 11:43] VITALS: BP 153/95
[2019-02-13] MEDS ORDERED: LOTRIMIN 1%15 GM PO (12:23)
[2019-02-13] MEDS ORDERED: PREDNISONE20 M1 PO (12:23)
== END 2019-02-13 12:32 | disposition home or self-care (01) ==
LOC: ED 11:42
DX: B35.9 Dermatophytosis, unspecified (principal); J45.909 Unspecified asthma, uncomplicated; I10 Essential (primary) hypertension; I48.91 Unspecified atrial fibrillation; Z90.710 Acquired absence of both cervix and uterus; Z90.49 Acquired absence of other specified parts of digestive tract; Z88.0 Allergy status to penicillin; Z88.8 Allergy status to other drugs, medicaments and biological substances; Z88.1 Allergy status to other antibiotic agents; Z79.899 Other long term (current) drug therapy

== ENCOUNTER 2019-07-21 15:00 | Inpatient (IN) | payer MEDICARE ==
[~2019-07-21] VITALS: Ht 180.3 cm; Wt 141.3 kg
[~2019-07-21 15:00] MED LIST changes: +LOTRIMIN 1%15 GM PO
[2019-07-21 15:39] LABS: BASO # 0.1 10*3/uL (0.0-0.1); EOS # 0.2 10*3/uL (0.0-0.4); EOS % 4.1 % (1.0-4.0); HEMATOCRIT 50.3 % (37.0-47.0); LYMPH % 33.3 % (27.0-41.0); MEAN CELL VOLUME 96.4 fl (81.0-99.0); MEAN CORPUSCULAR HGB 31.4 pg (27.0-31.0); MEAN CORPUSCULAR HGB CONC 32.6 g/dl (33.0-37.0); MEAN PLATELET VOLUME 10.5 fl (9.6-12.3); MONO % 17.1 % (3.0-9.0); NEUT # 2.6 10*3/uL (2.3-7.9); NEUT % 44.2 % (47.0-73.0); PLATELET COUNT AUTOMATED 164 10*3/uL (130-400); RED BLOOD COUNT 5.22 10*6/uL (4.10-5.10); RED CELL DISTRI WIDTH 13.4 % (0-14.5); WHITE BLOOD COUNT 5.9 10*3/uL (4.8-10.8)
[2019-07-21 15:42] VITALS: BP 150/70
[2019-07-21 15:50] LABS: ACT PARTIAL THROMBO TIME 34.9 SECONDS (20.0-32.1)
--- NOTE | 2019-07-21 15:50 | NUR ---
PT RESTING IN LOW FOWLERS NOTED INCREASE IN O2 SAT FROM 91% RA TO 97% ON 2LPM PT HAS NO REQUESTS AT THIS TIME BED IN LOWEST POSITION BED RAIL UP AND CALL LIGHT IN REACH
[2019-07-21 15:55] LABS: ALBUMIN 3.7 gm/dl (3.1-4.5); ALKALINE PHOSPHATASE 99 U/L (45-117); BUN 15 mg/dl (7-24); CHLORIDE 106 mmol/L (98-107); CREATININE 0.98 mg/dL (0.55-1.02); POTASSIUM 4.4 mmol/L (3.5-5.1); SGOT/AST 16 IU/L (3-35); SGPT/ALT 19 U/L (12-78); SODIUM 136 mmol/L (136-145); TOTAL PROTEIN 7.1 gm/dL (6.4-8.2)
[2019-07-21 15:57] LABS: TROPONIN I < 0.015 ng/ml (<0.045)
[2019-07-21 19:23] VITALS: BP 147/88
--- NOTE | 2019-07-21 20:17 | NUR ---
PT RESTING ON CART, PLACED ON SALES REPRESENTATIVE UNIFORMS. CALL LIGHT IN REACH. DENIES UNMET NEEDS. WILL CONTINUE TO MONITOR
[2019-07-21 20:22] VITALS: BP 124/83
[2019-07-21 20:48] VITALS: BP 108/81
--- NOTE | 2019-07-21 21:06 | NUR ---
LAB AT BEDSIDE
--- NOTE | 2019-07-21 21:16 | NUR ---
CALLED FRANCIA ORTIZ, REQUEST FOR THIS RN TO WAIT 20 MIN BEFORE BRINGING PATIENT UP TO ROOM
--- NOTE | 2019-07-21 21:29 | NUR ---
UPDATED PT SPOUSE OF ADMISSION PER PT REQUEST. PT CONTINUES TO DENY PAIN AND REST ON CART. CALL LIGHT IN REACH. DENIES UNMET NEEDS. WILL CONTINUE TO MONITOR.
[2019-07-21 21:30] VITALS: BP 124/76
[2019-07-21 21:55] VITALS: BP 157/94
--- NOTE | 2019-07-21 21:55 | NUR ---
A 68, admitted to , under the services of JAMILAH Mahoney MD with a diagnosis of CHF. Chief complaint is SHORTNESS OF BREATH. Patient arrived via bed from ER. Monitor applied. Initial assessment completed. Vital signs taken and recorded. JAMILAH MAHONEY MD notified of admission to the unit. Orders received. See assessment for past medical history, medications and allergies. Patient and/or family oriented to unit. [facility] visitation policy reviewed. Clothing/patient valuable form completed. FRANCIA LIM
[2019-07-22] VITALS: BP 154/81
[2019-07-22 04:18] LABS: BASO # 0.1 10*3/uL (0.0-0.1); BASO % 0.8 % (0.0-1.0); EOS # 0.3 10*3/uL (0.0-0.4); EOS % 3.8 % (1.0-4.0); HEMATOCRIT 49.5 % (37.0-47.0); LYMPH # 1.5 10*3/uL (1.3-4.4); LYMPH % 22.3 % (27.0-41.0); MEAN CELL VOLUME 94.3 fl (81.0-99.0); MEAN CORPUSCULAR HGB 31.4 pg (27.0-31.0); MEAN CORPUSCULAR HGB CONC 33.3 g/dl (33.0-37.0); MEAN PLATELET VOLUME 10.5 fl (9.6-12.3); MONO % 14.4 % (3.0-9.0); NEUT # 3.9 10*3/uL (2.3-7.9); NEUT % 58.4 % (47.0-73.0); PLATELET COUNT AUTOMATED 158 10*3/uL (130-400); RED BLOOD COUNT 5.25 10*6/uL (4.10-5.10); RED CELL DISTRI WIDTH 13.2 % (0-14.5); WHITE BLOOD COUNT 6.6 10*3/uL (4.8-10.8)
[2019-07-22 08:00] VITALS: BP 120/66
--- NOTE | 2019-07-22 08:40 | NUR ---
CARDIOLOGY OFFICE AWARE OF CONSULT.
--- NOTE | 2019-07-22 09:00 | NUR ---
Lead Engineer in to talk to patient. Patient states lives at home with her fikris. There are 0 steps in the home. Physician: Dr. Gloria Gage [facility]acy: [facility] Home health services: none Patient's level of ADLs: INDEPENDENT Patient has working utilities: yes DME: walker, cane Follow-up physician's appointment after d/c: she prefers to make her own follow up appt after discharge Does patient want to access PORTAL?: no Discharge plan discussed with patient. She lives at home with her fiance. She is independent in her ADLs and ambulation. She does have a cane and a walker from previous knee replacements but doesn't use at this time. She states she sleeps in a recliner in her living room. Discussed home health care services and she denies any home needs. When medically stable she will be discharged to home. She states either her daughter or her fiance will provide transportation on discharge. EVANGELINA SPAULDING
[2019-07-22 12:00] VITALS: BP 115/65
[2019-07-22 16:00] VITALS: BP 123/78; BP 153/79
--- NOTE | 2019-07-22 18:04 | NUR ---
MEDICATED WITHPRN TYLENOL PER ORDER AND REQUEST.
--- NOTE | 2019-07-22 19:31 | NUR ---
24 HR chart check completed.
[2019-07-22 20:00] VITALS: BP 119/64
--- NOTE | 2019-07-22 20:30 | NUR ---
SITTING AT BEDSIDE, NO ACUTE DISTRESS NOTED. RESPIRATIONS EASY. LUNGS DIMINISHED, CLEAR. PULSE OX 92% RA. CLAIMS COUGH PROD FOR CLEAR, NONE NOTED UPON ASSESSMENT. CALL LIGHT WITHIN REACH. NO VOICED COMPLAINTS
--- NOTE | 2019-07-22 22:00 | NUR ---
NPO AFTER MIDNIGHT DISCUSSED FOR TESTING IN AM, PATIENT VOICED UNDERSTANDING
[2019-07-23] VITALS: BP 110/68; BP 93/75
--- NOTE | 2019-07-23 | NUR ---
SLEEPING. NO DISTRESS NOTED. RESPIRATIONS EASY. VSS. CALL LIGHT WITHIN REACH.
[2019-07-23] MEDS ORDERED: FUROSEMIDE40 MG PO (00:15)
--- NOTE | 2019-07-23 06:00 | NUR ---
SLEPT THROUGHOUT NIGHT WITH NO DISTRESS NOTED. RESPIRATIONS EASY. VSS. NPO FOR TESTING THIS AM. CALL LIGHT WITHIN REACH. NO VOICED COMPLAINTS THIS SHIFT
[2019-07-23 08:00] VITALS: BP 118/78
[2019-07-23] MEDS ORDERED: HYCODAN/HYDROMET5 ML PO (08:29)
[2019-07-23] MEDS ORDERED: ZITHROMAX250 MG PO (08:29)
--- NOTE | 2019-07-23 08:52 | NUR ---
Deck Engine Operator in to see patient. No new needs or request at this time. She denies any home needs. When medically stable she will be discharged to home.
--- NOTE | 2019-07-23 10:30 | NUR ---
INFORMED CONSENT OBTAINED FOR LEXISCAN NUCLEAR STRESS TEST WITH DR. SEVILLA. RESTING EKG PACED WITH A RESTING HR OF 70 WITH BP OF 90/PALP AND REPEAT BP 94/DOPPLER IN RIGHT LOWER ARM. LUNGS WITH DIMINISHED BS WITH SPO2 OF 95% ON ROOM AIR. PT COMPLETED A 1:00 LEXISCAN PROTOCOL RECEIVING LEXISCAN 0.4 MG IV OVER 10 SECONDS. EKG NONDIAGNOSTIC WITH PACED RHYTHM. HAD C/O FEELING SHORTNESS OF BREATH AND NAUSEA THAT WAS RELIEVED IN RECOVERY. HAD A PEAK HR OF 75 WITH BP OF 92/DOPPLER. LAST RECOVERY HR OF 74 WITH BP OF 118/DOPPLER. AWAITING SCANNING IN STABLE CONDITION.
[2019-07-23 12:00] VITALS: BP 114/67
--- NOTE | 2019-07-23 15:51 | NUR ---
PATIENT TO BE DISCHARGED TO HOME.
--- NOTE | 2019-07-23 16:38 | NUR ---
PATIENT DISCHARGED TO HOME.
== END 2019-07-23 16:38 | disposition home or self-care (01) | DRG 292 ==
LOC: ED 15:00 → EDHOLD 20:34 → 4E 20:34
PROVIDERS: Emergency Medicine; ADMIT Internal Medicine
PROC: 4A02XM4 Measurement of Cardiac Total Activity, External Approach (ICD-10-PCS; principal; 2019-07-23)
PROC: 3E073KZ Introduction of Other Diagnostic Substance into Coronary Artery, Percutaneous Approach (ICD-10-PCS; principal; 2019-07-23)
DX: I11.0 Hypertensive heart disease with heart failure (principal); I48.21 Permanent atrial fibrillation; I24.8 Other forms of acute ischemic heart disease; Z68.41 Body mass index [BMI] 40.0-44.9, adult; I50.33 Acute on chronic diastolic (congestive) heart failure; E78.2 Mixed hyperlipidemia; I35.0 Nonrheumatic aortic (valve) stenosis; E66.01 Morbid (severe) obesity due to excess calories; Z79.01 Long term (current) use of anticoagulants; Z88.0 Allergy status to penicillin; Z88.1 Allergy status to other antibiotic agents; Z88.8 Allergy status to other drugs, medicaments and biological substances; Z95.0 Presence of cardiac pacemaker; Z87.442 Personal history of urinary calculi; Z79.899 Other long term (current) drug therapy; Z82.49 Family history of ischemic heart disease and other diseases of the circulatory system

== ENCOUNTER 2019-11-01 09:56 | Emergency (ER) | payer MEDICARE ==
[~2019-11-01 09:56] MED LIST changes: +HYCODAN/HYDROMET5 ML PO; +ZITHROMAX250 MG PO
[2019-11-01 10:45] LABS: BASO # 0.1 10*3/uL (0.0-0.1); EOS # 0.4 10*3/uL (0.0-0.4); HEMATOCRIT 44.7 % (37.0-47.0); LYMPH # 2.1 10*3/uL (1.3-4.4); LYMPH % 29.1 % (27.0-41.0); MEAN CELL VOLUME 94.5 fl (81.0-99.0); MEAN CORPUSCULAR HGB 31.1 pg (27.0-31.0); MEAN CORPUSCULAR HGB CONC 32.9 g/dl (33.0-37.0); MEAN PLATELET VOLUME 10.1 fl (9.6-12.3); MONO # 0.7 10*3/uL (0.1-1.0); MONO % 9.2 % (3.0-9.0); NEUT % 54.3 % (47.0-73.0); PLATELET COUNT AUTOMATED 210 10*3/uL (130-400); RED BLOOD COUNT 4.73 10*6/uL (4.10-5.10); RED CELL DISTRI WIDTH 14.2 % (0-14.5); WHITE BLOOD COUNT 7.3 10*3/uL (4.8-10.8)
[2019-11-01 10:57] LABS: ACT PARTIAL THROMBO TIME 30.8 SECONDS (20.0-32.1)
[2019-11-01 11:03] LABS: ALBUMIN 3.5 gm/dl (3.1-4.5); ALKALINE PHOSPHATASE 107 U/L (45-117); BUN 14 mg/dl (7-24); CHLORIDE 109 mmol/L (98-107); CREATININE 0.97 mg/dL (0.55-1.02); POTASSIUM 3.9 mmol/L (3.5-5.1); SGOT/AST 9 IU/L (3-35); SGPT/ALT 15 U/L (12-78); SODIUM 140 mmol/L (136-145); TOTAL PROTEIN 6.9 gm/dL (6.4-8.2)
[2019-11-01 11:09] LABS: TROPONIN I < 0.015 ng/ml (<0.045)
[2019-11-01 12:46] LABS: BACTERIA 2+; BILIRUBIN NEGATIVE (NEGATIVE); BLOOD NEGATIVE (NEGATIVE); CLARITY SL CLOUDY (CLEAR); COLOR YELLOW (YELLOW); GLUCOSE NEGATIVE (NEGATIVE); KETONE NEGATIVE (NEGATIVE); LEUKO ESTERASE TRACE (NEGATIVE); NITRITE POSITIVE (NEGATIVE); UROBILINOGEN 0.2 E.U./dl (0.2-1.0)
[2019-11-01 13:50] VITALS: BP 182/97
== END 2019-11-01 16:25 | disposition short-term general hospital (02) ==
LOC: ED 09:56
PROVIDERS: Emergency Medicine
DX: G45.9 Transient cerebral ischemic attack, unspecified (principal); I11.0 Hypertensive heart disease with heart failure; I50.9 Heart failure, unspecified; E78.5 Hyperlipidemia, unspecified; M10.9 Gout, unspecified; E78.00 Pure hypercholesterolemia, unspecified; I48.91 Unspecified atrial fibrillation; Z79.01 Long term (current) use of anticoagulants; Z88.8 Allergy status to other drugs, medicaments and biological substances; Z88.0 Allergy status to penicillin; Z79.899 Other long term (current) drug therapy

== ENCOUNTER 2020-02-20 03:06 | Observation (INO) | payer MEDICARE ==
[~2020-02-20] VITALS: Ht 180.3 cm; Wt 138.0 kg
[2020-02-20 03:18] VITALS: BP 166/80
[2020-02-20 03:44] LABS: BASO % 0.6 % (0.0-1.0); EOS # 0.3 10*3/uL (0.0-0.4); EOS % 4.5 % (1.0-4.0); HEMATOCRIT 45.5 % (37.0-47.0); LYMPH # 1.6 10*3/uL (1.3-4.4); MEAN CORPUSCULAR HGB 30.4 pg (27.0-31.0); MEAN CORPUSCULAR HGB CONC 32.3 g/dl (33.0-37.0); MEAN PLATELET VOLUME 10.2 fl (9.6-12.3); MONO # 0.6 10*3/uL (0.1-1.0); MONO % 9.6 % (3.0-9.0); NEUT # 3.9 10*3/uL (2.3-7.9); NEUT % 60.1 % (47.0-73.0); PLATELET COUNT AUTOMATED 202 10*3/uL (130-400); RED BLOOD COUNT 4.84 10*6/uL (4.10-5.10); RED CELL DISTRI WIDTH 13.3 % (0-14.5); WHITE BLOOD COUNT 6.5 10*3/uL (4.8-10.8)
[2020-02-20 03:55] LABS: ACT PARTIAL THROMBO TIME 30.8 SECONDS (20.0-32.1); INTERNATIONAL NORM RATIO 1.1 (2.0-3.5)
[2020-02-20 04:01] LABS: ALBUMIN 3.4 gm/dl (3.1-4.5); ALKALINE PHOSPHATASE 94 U/L (45-117); BUN 8 mg/dl (7-24); CHLORIDE 107 mmol/L (98-107); CREATININE 0.86 mg/dL (0.55-1.02); POTASSIUM 3.9 mmol/L (3.5-5.1); SGOT/AST 11 IU/L (3-35); SGPT/ALT 13 U/L (12-78); SODIUM 140 mmol/L (136-145); TOTAL PROTEIN 6.6 gm/dL (6.4-8.2)
--- NOTE | 2020-02-20 04:01 | NUR ---
PT RESTING IN BED. SIDERAILS UP X2. NO ACUTE DISTRESS
[2020-02-20 04:03] LABS: TROPONIN I < 0.015 ng/ml (<0.045)
[2020-02-20 04:15] VITALS: BP 151/75
--- NOTE | 2020-02-20 04:25 | NUR ---
PT DENIES ANY WOUNDS
[2020-02-20 04:45] VITALS: BP 122/69
[2020-02-20 05:00] VITALS: BP 152/79
--- NOTE | 2020-02-20 05:00 | NUR ---
A 69, admitted to , under the services of JAMILAH Mahoney MD with a diagnosis of chest pain. Chief complaint is CHEST PAIN MID TO LEFT SHOULDER SHARP STARTED YESTERDAY. PT. HAD PACEMAKER FROM 10 YEARS AGO.. Patient arrived via stretcher from ER. Monitor applied. Initial assessment completed. Vital signs taken and recorded. JAMILAH MAHONEY MD notified of admission to the 4E unit. Orders received. See assessment for past medical history, medications and allergies. Patient and/or family oriented to unit. [facility] visitation policy reviewed. Clothing/patient valuable form completed. DRAKE MALAGON
--- NOTE | 2020-02-20 06:05 | NUR ---
CALLED DR. MCCARTHY AND ORDERS RECEIVED.
--- NOTE | 2020-02-20 06:16 | NUR ---
CALLED DR. FORMAN ANSWERING SERVICE AND NOTIFIED THEM OF CONSULT.
--- NOTE | 2020-02-20 07:00 | NUR ---
ARRIVED ON SHIFT, REPORT RECEIVED FROM OFFGOING NURSE, ASSUMED CARE OF PATIENT.
--- NOTE | 2020-02-20 07:30 | NUR ---
INTRODUCED SELF TO PATIENT, BED IN LOW POSITION, WHEEL LOCKS ENGAGED, SIDE RAILS UP X 2 FOR TURNING AND REPOSITIONING, CALL LIGHT WITHIN REACH, PATIENT REMAINS NPO FOR STRESS TEST, NO NEEDS VOICED AT THIS TIME, WHITE BOARD UPDATED.
[2020-02-20 08:00] VITALS: BP 150/68
--- NOTE | 2020-02-20 09:00 | NUR ---
Trim Mounter in to talk to patient. Patient states lives at home with her fiance. There are 0 steps in the home. Physician: Dr. Gloria Gage [facility]acy: [facility] Home health services: none Patient's level of ADLs: INDEPENDENT Patient has working utilities: yes DME: none Follow-up physician's appointment after d/c: she prefers to make her own follow up appt after discharge Does patient want to access PORTAL?: no Discharge plan discussed with patient. She lives at home with her fiance. She is independent in her ADLs and ambulation. Discussed home health care services and she declines. CM will continue to follow for any discharge planning needs. When medically stable she will be discharged to home. She states her fiance will provide transportation on discharge. EVANGELINA SPAULDING
--- NOTE | 2020-02-20 11:17 | NUR ---
Shift chart check completed.
[2020-02-20 12:00] VITALS: BP 153/68
--- NOTE | 2020-02-20 12:08 | NUR ---
INFORMED SIGNED CONSENT OBTAINED FOR LEXISCAN STRESS TEST WITH DR FORMAN. RESTING EKG PACED HR 80 BP 118/80. PULSE OX 98% LUNGS CLEAR. PT COMPLETED ONE MINUTE OF A LEXISCAN PROTOCOL WITH PT RECEIVING LEXISCAN 0.4MG IV OVER 10 SECONDS. NO ARRHYTHMIAS OR ST CHANGES NOTED. PT HAD A WARM FEELING AND NAUSEA WITH INJECTION. LAST RECOVERY HR OF 70 BP 106/68. PT IN STABLE CONDITION, AWAITING NUCLEAR IMAGES.
--- NOTE | 2020-02-20 15:15 | NUR ---
CALL PLACED TO DR. MCCARTHY, ADVISED THAT PATIENTS STRESS TEST WAS NEGATIVE, SHE GAVE ORDER TO DISCHARGE PATIENT, CONTINUE ALL HOME MEDS.
--- NOTE | 2020-02-20 16:15 | NUR ---
Discharge instructions reviewed with patient/family. Patient receptive and verbalizes understanding. Follow-up care arranged. Written instructions given to patient/family, IV REMOVED TELEMETRY ACCOUNTED FOR, TAKEN OUT VIA W/C BY MARY GARCIA
== END 2020-02-20 16:56 | disposition home or self-care (01) ==
LOC: ED 03:06 → 4E 04:18 → EDHOLD 04:18 → 4E 05:48
PROVIDERS: Emergency Medicine; ADMIT Internal Medicine; ATTEND Internal Medicine
DX: I48.91 Unspecified atrial fibrillation (principal); I10 Essential (primary) hypertension; M19.90 Unspecified osteoarthritis, unspecified site; E87.0 Hyperosmolality and hypernatremia; E87.2 Acidosis; Z87.442 Personal history of urinary calculi

== ENCOUNTER 2020-07-04 17:18 | Emergency (ER) | payer OTHER ==
[~2020-07-04] VITALS: Ht 180.3 cm; Wt 135.6 kg
[2020-07-04 17:27] VITALS: BP 144/89
[2020-07-04 18:02] LABS: BASO % 0.5 % (0.0-1.0); EOS # 0.1 10*3/uL (0.0-0.4); EOS % 0.8 % (1.0-4.0); HEMATOCRIT 52.3 % (37.0-47.0); LYMPH # 1.7 10*3/uL (1.3-4.4); LYMPH % 27.8 % (27.0-41.0); MEAN CELL VOLUME 90.8 fl (81.0-99.0); MEAN CORPUSCULAR HGB 30.4 pg (27.0-31.0); MEAN CORPUSCULAR HGB CONC 33.5 g/dl (33.0-37.0); MEAN PLATELET VOLUME 10.8 fl (9.6-12.3); MONO # 0.8 10*3/uL (0.1-1.0); MONO % 12.6 % (3.0-9.0); NEUT # 3.4 10*3/uL (2.3-7.9); PLATELET COUNT AUTOMATED 205 10*3/uL (130-400); RED BLOOD COUNT 5.76 10*6/uL (4.10-5.10); WHITE BLOOD COUNT 5.9 10*3/uL (4.8-10.8)
[2020-07-04 18:10] LABS: BILIRUBIN 2+ (Negative); BLOOD Negative (Negative); CLARITY Cloudy (Clear); COLOR Dark Yellow (Yellow); GLUCOSE Negative (Negative); KETONE Trace (Negative); LEUKO ESTERASE 2+ (Negative); NITRITE Positive (Negative); SPECIFIC GRAVITY >= 1.030 (1.001-1.030)
[2020-07-04 18:13] LABS: ACT PARTIAL THROMBO TIME 35.7 SECONDS (20.0-32.1); INTERNATIONAL NORM RATIO 1.1 (2.0-3.5)
[2020-07-04 18:15] LABS: BACTERIA 2+; MUCOUS TRACE; RBC 0-2 rbc/hpf (0-2)
[2020-07-04 18:18] LABS: ALBUMIN 3.3 gm/dl (3.1-4.5); ALKALINE PHOSPHATASE 117 U/L (45-117); BUN 12 mg/dl (7-24); CHLORIDE 105 mmol/L (98-107); CREATININE 0.93 mg/dL (0.55-1.02); LIPASE 68 U/L (73-393); POTASSIUM 4.2 mmol/L (3.5-5.1); SGOT/AST 19 IU/L (3-35); SGPT/ALT 26 U/L (12-78); SODIUM 134 mmol/L (136-145); TOTAL PROTEIN 7.7 gm/dL (6.4-8.2)
[2020-07-04 18:19] LABS: TROPONIN I < 0.015 ng/ml (<0.045)
[2020-07-04] MEDS ORDERED: SEPTDS PO (18:23)
== END 2020-07-04 18:32 | disposition home or self-care (01) ==
LOC: ED 17:18
PROVIDERS: Nurse Practitioner Family
DX: N39.0 Urinary tract infection, site not specified (principal); I10 Essential (primary) hypertension; I48.91 Unspecified atrial fibrillation; J45.909 Unspecified asthma, uncomplicated; E66.01 Morbid (severe) obesity due to excess calories; Z90.49 Acquired absence of other specified parts of digestive tract; Z90.711 Acquired absence of uterus with remaining cervical stump; Z95.0 Presence of cardiac pacemaker; Z96.653 Presence of artificial knee joint, bilateral; Z88.0 Allergy status to penicillin; Z88.8 Allergy status to other drugs, medicaments and biological substances; Z88.1 Allergy status to other antibiotic agents; Z79.899 Other long term (current) drug therapy

== ENCOUNTER → 2020-07-24 | Outpatient (CLI) | payer OTHER ==
[2020-07-24 09:57] LABS: BASO # 0.1 10*3/uL (0.0-0.1); BASO % 0.8 % (0.0-1.0); EOS # 0.3 10*3/uL (0.0-0.4); EOS % 4.1 % (1.0-4.0); HEMATOCRIT 47.4 % (37.0-47.0); LYMPH # 1.8 10*3/uL (1.3-4.4); LYMPH % 28.6 % (27.0-41.0); MEAN CORPUSCULAR HGB 30.4 pg (27.0-31.0); MEAN CORPUSCULAR HGB CONC 32.3 g/dl (33.0-37.0); MEAN PLATELET VOLUME 10.9 fl (9.6-12.3); MONO # 0.6 10*3/uL (0.1-1.0); MONO % 9.2 % (3.0-9.0); NEUT # 3.7 10*3/uL (2.3-7.9); PLATELET COUNT AUTOMATED 137 10*3/uL (130-400); RED BLOOD COUNT 5.04 10*6/uL (4.10-5.10); RED CELL DISTRI WIDTH 14.4 % (0-14.5); WHITE BLOOD COUNT 6.4 10*3/uL (4.8-10.8)
[2020-07-24 10:16] LABS: ALBUMIN 3.1 gm/dl (3.1-4.5); BUN 7 mg/dl (7-24); CHLORIDE 110 mmol/L (98-107); CHOLESTEROL 139 mg/dL (<200); CREATININE 0.94 mg/dL (0.55-1.02); FREE T4 1.02 ng/dl (0.76-1.46); POTASSIUM 3.9 mmol/L (3.5-5.1); SGOT/AST 10 IU/L (3-35); SGPT/ALT 23 U/L (12-78); SODIUM 141 mmol/L (136-145); TRIGLYCERIDES 100 mg/dl (<150); VLDL CHOLESTEROL 20 mg/dL (6-40)
[2020-07-24 10:21] LABS: ALKALINE PHOSPHATASE 106 U/L (45-117); HDL CHOLESTEROL 52 mg/dl (40-60); LDL CHOLESTEROL 67 mg/dL (9-159); TOTAL PROTEIN 6.3 gm/dL (6.4-8.2)
[2020-07-24 11:12] LABS: VITAMIN D, 25-HYDROXY 25.2 ng/mL (30-100)
== END | disposition home or self-care (01) ==
LOC: CT 09:00 → LAB 09:05
PROVIDERS: ATTEND Internal Medicine
DX: Z00.01 Encounter for general adult medical examination with abnormal findings (principal); I67.82 Cerebral ischemia; R41.81 Age-related cognitive decline; E55.9 Vitamin D deficiency, unspecified; E78.2 Mixed hyperlipidemia; I10 Essential (primary) hypertension; R41.3 Other amnesia; Z13.1 Encounter for screening for diabetes mellitus

== ENCOUNTER → 2020-08-24 | Outpatient (CLI) | payer OTHER | END | disposition home or self-care (01) | LOC: CARD 07-07 12:00 | PROVIDERS: ATTEND Internal Medicine Cardiovascular Disease | DX: I35.0 Nonrheumatic aortic (valve) stenosis (principal) ==

== ENCOUNTER → 2020-08-28 | Outpatient (CLI) | payer OTHER | END | disposition home or self-care (01) | LOC: US 00:42 | PROVIDERS: ATTEND Internal Medicine | DX: I65.23 Occlusion and stenosis of bilateral carotid arteries (principal) ==

== ENCOUNTER → 2021-05-04 | Outpatient (CLI) | payer MEDICARE | END | disposition home or self-care (01) | LOC: COVID19 17:09 | PROVIDERS: ATTEND Podiatrist Foot & Ankle Surgery | DX: Z20.822 Contact with and (suspected) exposure to COVID-19 (principal) ==

== ENCOUNTER → 2021-05-12 | Outpatient (CLI) | payer MEDICARE | LOC: COVID19 16:07 | PROVIDERS: ATTEND Internal Medicine | DX: Z11.52 Encounter for screening for COVID-19 (principal); Z20.822 Contact with and (suspected) exposure to COVID-19 ==

== ENCOUNTER 2021-12-09 12:56 | Inpatient (IN) | payer MEDICARE ==
[~2021-12-09] VITALS: Ht 180.3 cm; Wt 121.7 kg
[2021-12-09] VITALS (7 sets, daily range): BP systolic 154–206; BP diastolic 68–110
[2021-12-09 13:31] LABS: BASO % 0.5 % (0.0-1.0); EOS % 0.2 % (1.0-4.0); HEMATOCRIT 48.6 % (37.0-47.0); LYMPH # 1.2 10*3/uL (1.3-4.4); LYMPH % 13.5 % (27.0-41.0); MEAN CELL VOLUME 93.8 fl (81.0-99.0); MEAN CORPUSCULAR HGB 31.5 pg (27.0-31.0); MEAN CORPUSCULAR HGB CONC 33.5 g/dl (33.0-37.0); MEAN PLATELET VOLUME 10.2 fl (9.6-12.3); MONO # 0.7 10*3/uL (0.1-1.0); MONO % 8.1 % (3.0-9.0); NEUT # 6.7 10*3/uL (2.3-7.9); NEUT % 77.2 % (47.0-73.0); PLATELET COUNT AUTOMATED 185 10*3/uL (130-400); RED BLOOD COUNT 5.18 10*6/uL (4.10-5.10); RED CELL DISTRI WIDTH 13.6 % (0-14.5); WHITE BLOOD COUNT 8.7 10*3/uL (4.8-10.8)
[2021-12-09 13:42] LABS: ACT PARTIAL THROMBO TIME 35.3 SECONDS (20.0-32.1); INTERNATIONAL NORM RATIO 1.1 (2.0-3.5)
[2021-12-09 13:49] LABS: ALKALINE PHOSPHATASE 96 U/L (45-117); BUN 10 mg/dl (7-24); CHLORIDE 104 mmol/L (98-107); CREATININE 1.02 mg/dL (0.55-1.02); LIPASE 44 U/L (73-393); POTASSIUM 4.5 mmol/L (3.5-5.1); SGOT/AST 14 IU/L (3-35); SGPT/ALT 27 U/L (12-78); SODIUM 136 mmol/L (136-145); TOTAL PROTEIN 6.9 gm/dL (6.4-8.2)
[2021-12-09] MEDS ORDERED: RIVASTIGMINE T1.5 M1 PO (20:55)
[2021-12-10] VITALS: BP 151/65
[2021-12-10 07:05] LABS: BILIRUBIN 1+ (Negative); BLOOD 1+ (Negative); CLARITY Cloudy (Clear); COLOR Dark Yellow (Yellow); GLUCOSE Negative (Negative); KETONE 1+ (Negative); LEUKO ESTERASE 3+ (Negative); NITRITE Positive (Negative)
[2021-12-10 07:29] LABS: BUN 12 mg/dl (7-24); CHLORIDE 103 mmol/L (98-107); CREATININE 0.89 mg/dL (0.55-1.02); POTASSIUM 3.8 mmol/L (3.5-5.1); SODIUM 135 mmol/L (136-145)
[2021-12-10 08:00] VITALS: BP 154/61
[2021-12-10 08:23] LABS: BACTERIA 4+
[2021-12-10 12:00] VITALS: BP 105/53; BP 146/67
[2021-12-10 16:00] VITALS: BP 167/89
[2021-12-10 20:00] VITALS: BP 147/68
[2021-12-11] VITALS: BP 132/74
[2021-12-11 08:00] VITALS: BP 138/87
[2021-12-11 12:00] VITALS: BP 145/92
[2021-12-11 18:00] VITALS: BP 156/82
[2021-12-11 20:00] VITALS: BP 158/98
[2021-12-12] VITALS: BP 120/65
[2021-12-12 04:00] VITALS: BP 134/75
[2021-12-12 06:36] LABS: BASO % 0.6 % (0.0-1.0); EOS # 0.3 10*3/uL (0.0-0.4); EOS % 3.9 % (1.0-4.0); HEMATOCRIT 49.9 % (37.0-47.0); LYMPH # 1.9 10*3/uL (1.3-4.4); LYMPH % 30.1 % (27.0-41.0); MEAN CELL VOLUME 90.7 fl (81.0-99.0); MEAN CORPUSCULAR HGB 31.1 pg (27.0-31.0); MEAN CORPUSCULAR HGB CONC 34.3 g/dl (33.0-37.0); MEAN PLATELET VOLUME 10.8 fl (9.6-12.3); MONO # 0.7 10*3/uL (0.1-1.0); MONO % 10.7 % (3.0-9.0); NEUT # 3.5 10*3/uL (2.3-7.9); NEUT % 54.4 % (47.0-73.0); PLATELET COUNT AUTOMATED 221 10*3/uL (130-400); RED CELL DISTRI WIDTH 13.1 % (0-14.5); WHITE BLOOD COUNT 6.4 10*3/uL (4.8-10.8)
[2021-12-12 07:03] LABS: ALKALINE PHOSPHATASE 95 U/L (45-117); BUN 12 mg/dl (7-24); CHLORIDE 104 mmol/L (98-107); CREATININE 0.91 mg/dL (0.55-1.02); LDH 147 U/L (84-246); POTASSIUM 3.9 mmol/L (3.5-5.1); SGOT/AST 15 IU/L (3-35); SGPT/ALT 22 U/L (12-78); SODIUM 137 mmol/L (136-145); TOTAL PROTEIN 6.9 gm/dL (6.4-8.2)
[2021-12-12 08:00] VITALS: BP 156/93
[2021-12-12 12:00] VITALS: BP 128/79
[2021-12-12] MEDS ORDERED: VIBRA-TAB100 MG PO (13:20)
== END 2021-12-12 14:29 | disposition home or self-care (01) | DRG 178 ==
LOC: ED 12:56 → EDHOLD 16:00 → 4E 16:00
PROVIDERS: Emergency Medicine; Internal Medicine Critical Care Medicine; ADMIT Internal Medicine; ATTEND Internal Medicine
DX: U07.1 COVID-19 (principal); I48.21 Permanent atrial fibrillation; N39.0 Urinary tract infection, site not specified; I50.9 Heart failure, unspecified; G30.1 Alzheimer's disease with late onset; F02.80 Dementia in other diseases classified elsewhere, unspecified severity, without behavioral disturbance, psychotic disturbance, mood disturbance, and anxiety; B96.20 Unspecified Escherichia coli [E. coli] as the cause of diseases classified elsewhere; E78.2 Mixed hyperlipidemia; J45.909 Unspecified asthma, uncomplicated; I11.0 Hypertensive heart disease with heart failure; E66.9 Obesity, unspecified; Z88.0 Allergy status to penicillin; Z88.8 Allergy status to other drugs, medicaments and biological substances; Z79.899 Other long term (current) drug therapy; Z79.01 Long term (current) use of anticoagulants; Z95.0 Presence of cardiac pacemaker; Z83.3 Family history of diabetes mellitus; Z82.49 Family history of ischemic heart disease and other diseases of the circulatory system; Z90.49 Acquired absence of other specified parts of digestive tract; Z68.39 Body mass index [BMI] 39.0-39.9, adult

== ENCOUNTER → 2022-04-19 | Outpatient (CLI) | payer MEDICARE ==
[~2022-04-19] MED LIST changes: +ASPIRIN ADULT L81 M2 PO; +CARVEDILOL6.25 MG PO; +LOSARTAN POTASS50 M1 PO; +METOPROLOL SUCC25 M2 PO; +RIVASTIGMINE T1.5 M1 PO; +VIBRA-TAB100 MG PO; +XARE20MG PO
[2022-04-19 15:22] LABS: HEMATOCRIT 55.7 % (37.0-47.0); MEAN CELL VOLUME 92.7 fl (81.0-99.0); MEAN CORPUSCULAR HGB 31.1 pg (27.0-31.0); MEAN CORPUSCULAR HGB CONC 33.6 g/dl (33.0-37.0); MEAN PLATELET VOLUME 10.4 fl (9.6-12.3); PLATELET COUNT AUTOMATED 367 10*3/uL (130-400); RED BLOOD COUNT 6.01 10*6/uL (4.10-5.10); RED CELL DISTRI WIDTH 13.3 % (0-14.5); WHITE BLOOD COUNT 14.1 10*3/uL (4.8-10.8)
[2022-04-19 15:32] LABS: MANUAL DIFF REFLEX YES
[2022-04-19 15:40] LABS: CHOLESTEROL 162 mg/dL (<200); LDL CHOLESTEROL 93 mg/dL (9-159); TRIGLYCERIDES 158 mg/dl (<150)
[2022-04-19 15:44] LABS: BASOPHILS 1 % (0-1); PLATELET SUFFICIENCY NORMAL (NORMAL); TOTAL CELLS COUNTED 100 #CELLS
[2022-04-20 07:06] LABS: HEPATITIS B SURFACE AG Negative (Negative)
== END | disposition home or self-care (01) ==
LOC: RESCLI 12:51
PROVIDERS: ATTEND Internal Medicine
DX: D75.1 Secondary polycythemia (principal); Z00.00 Encounter for general adult medical examination without abnormal findings; I11.0 Hypertensive heart disease with heart failure; I50.9 Heart failure, unspecified; E78.5 Hyperlipidemia, unspecified; I48.91 Unspecified atrial fibrillation; R73.9 Hyperglycemia, unspecified; Z95.1 Presence of aortocoronary bypass graft; Z90.49 Acquired absence of other specified parts of digestive tract; Z79.899 Other long term (current) drug therapy; Z88.0 Allergy status to penicillin; Z88.8 Allergy status to other drugs, medicaments and biological substances

== ENCOUNTER 2022-07-13 00:49 | Emergency (ER) | payer MEDICARE ==
[~2022-07-13] VITALS: Ht 177.8 cm; Wt 108.9 kg
[2022-07-13 01:06] VITALS: BP 143/83
[2022-07-13 02:00] LABS: BASO # 0.1 10*3/uL (0.0-0.1); BASO % 0.9 % (0.0-1.0); EOS # 0.4 10*3/uL (0.0-0.4); EOS % 5.1 % (1.0-4.0); LYMPH # 2.7 10*3/uL (1.3-4.4); MEAN CELL VOLUME 93.1 fl (81.0-99.0); MEAN CORPUSCULAR HGB 30.6 pg (27.0-31.0); MEAN CORPUSCULAR HGB CONC 32.9 g/dl (33.0-37.0); MEAN PLATELET VOLUME 9.8 fl (9.6-12.3); MONO # 0.7 10*3/uL (0.1-1.0); MONO % 8.4 % (3.0-9.0); NEUT # 3.9 10*3/uL (2.3-7.9); NEUT % 50.3 % (47.0-73.0); PLATELET COUNT AUTOMATED 246 10*3/uL (130-400); RED BLOOD COUNT 4.51 10*6/uL (4.10-5.10); WHITE BLOOD COUNT 7.7 10*3/uL (4.8-10.8)
[2022-07-13] MEDS ORDERED: VIBRAMYCIN100 MG PO (04:48)
== END 2022-07-13 05:15 | disposition home or self-care (01) ==
LOC: ED 00:49
PROVIDERS: Emergency Medicine
DX: R04.0 Epistaxis (principal); I48.91 Unspecified atrial fibrillation; I11.0 Hypertensive heart disease with heart failure; I50.9 Heart failure, unspecified; E78.5 Hyperlipidemia, unspecified; J45.909 Unspecified asthma, uncomplicated; F03.90 Unspecified dementia, unspecified severity, without behavioral disturbance, psychotic disturbance, mood disturbance, and anxiety; Z88.0 Allergy status to penicillin; Z88.1 Allergy status to other antibiotic agents; Z90.49 Acquired absence of other specified parts of digestive tract; Z90.710 Acquired absence of both cervix and uterus; Z90.89 Acquired absence of other organs; Z96.653 Presence of artificial knee joint, bilateral

== ENCOUNTER → 2022-07-14 | Outpatient (CLI) | payer MEDICARE | END | disposition home or self-care (01) | LOC: RESCLI 13:09 | PROVIDERS: ATTEND Internal Medicine | DX: R04.0 Epistaxis (principal); I11.0 Hypertensive heart disease with heart failure; I50.9 Heart failure, unspecified; E78.5 Hyperlipidemia, unspecified; I48.91 Unspecified atrial fibrillation; Z90.49 Acquired absence of other specified parts of digestive tract; Z98.890 Other specified postprocedural states; Z95.0 Presence of cardiac pacemaker; Z88.0 Allergy status to penicillin; Z88.1 Allergy status to other antibiotic agents; Z88.8 Allergy status to other drugs, medicaments and biological substances; Z79.82 Long term (current) use of aspirin; Z79.01 Long term (current) use of anticoagulants; Z79.899 Other long term (current) drug therapy ==

== ENCOUNTER 2022-08-15 20:36 | Emergency (ER) | payer MEDICARE ==
[~2022-08-15] VITALS: Ht 165.1 cm; Wt 104.3 kg
[2022-08-15 20:54] VITALS: BP 129/67
[2022-08-15 21:17] LABS: BASO # 0.1 10*3/uL (0.0-0.1); BASO % 1.3 % (0.0-1.0); EOS # 0.5 10*3/uL (0.0-0.4); EOS % 7.4 % (1.0-4.0); HEMATOCRIT 41.9 % (37.0-47.0); LYMPH # 2.7 10*3/uL (1.3-4.4); LYMPH % 37.5 % (27.0-41.0); MEAN CELL VOLUME 94.2 fl (81.0-99.0); MEAN CORPUSCULAR HGB 30.8 pg (27.0-31.0); MEAN CORPUSCULAR HGB CONC 32.7 g/dl (33.0-37.0); MEAN PLATELET VOLUME 10.5 fl (9.6-12.3); MONO # 0.6 10*3/uL (0.1-1.0); MONO % 7.9 % (3.0-9.0); NEUT # 3.3 10*3/uL (2.3-7.9); NEUT % 45.6 % (47.0-73.0); PLATELET COUNT AUTOMATED 256 10*3/uL (130-400); RED BLOOD COUNT 4.45 10*6/uL (4.10-5.10); RED CELL DISTRI WIDTH 14.1 % (0-14.5); WHITE BLOOD COUNT 7.2 10*3/uL (4.8-10.8)
[2022-08-15 21:29] LABS: POTASSIUM 3.2 mmol/L (3.4-5.1)
== END 2022-08-15 22:33 | disposition home or self-care (01) ==
LOC: ED 20:36
PROVIDERS: Internal Medicine
DX: R04.0 Epistaxis (principal); J45.909 Unspecified asthma, uncomplicated; I10 Essential (primary) hypertension; F03.90 Unspecified dementia, unspecified severity, without behavioral disturbance, psychotic disturbance, mood disturbance, and anxiety; I48.91 Unspecified atrial fibrillation; M10.9 Gout, unspecified; Z88.0 Allergy status to penicillin; Z88.6 Allergy status to analgesic agent; Z88.1 Allergy status to other antibiotic agents; Z88.8 Allergy status to other drugs, medicaments and biological substances; Z90.49 Acquired absence of other specified parts of digestive tract; Z90.710 Acquired absence of both cervix and uterus; Z90.89 Acquired absence of other organs; Z96.653 Presence of artificial knee joint, bilateral; Z98.890 Other specified postprocedural states

== ENCOUNTER 2022-09-05 08:11 | Emergency (ER) | payer MEDICARE ==
[~2022-09-05] VITALS: Wt 90.7 kg
[2022-09-05 08:29] VITALS: BP 119/72
[2022-09-05 09:16] LABS: BASO # 0.1 10*3/uL (0.0-0.1); BASO % 1.4 % (0.0-1.0); EOS # 0.5 10*3/uL (0.0-0.4); EOS % 7.1 % (1.0-4.0); HEMATOCRIT 41.2 % (37.0-47.0); LYMPH % 32.1 % (27.0-41.0); MEAN CELL VOLUME 94.9 fl (81.0-99.0); MEAN CORPUSCULAR HGB 30.2 pg (27.0-31.0); MEAN CORPUSCULAR HGB CONC 31.8 g/dl (33.0-37.0); MEAN PLATELET VOLUME 9.8 fl (9.6-12.3); MONO # 0.5 10*3/uL (0.1-1.0); MONO % 8.5 % (3.0-9.0); NEUT # 3.2 10*3/uL (2.3-7.9); NEUT % 50.6 % (47.0-73.0); PLATELET COUNT AUTOMATED 273 10*3/uL (130-400); RED BLOOD COUNT 4.34 10*6/uL (4.10-5.10); RED CELL DISTRI WIDTH 13.2 % (0-14.5); WHITE BLOOD COUNT 6.3 10*3/uL (4.8-10.8)
[2022-09-05 09:28] LABS: ACT PARTIAL THROMBO TIME 29.5 SECONDS (20.0-32.1)
== END 2022-09-05 10:59 | disposition home or self-care (01) ==
LOC: ED 08:11
PROVIDERS: Family Medicine
DX: R04.0 Epistaxis (principal); J45.909 Unspecified asthma, uncomplicated; I10 Essential (primary) hypertension; F03.90 Unspecified dementia, unspecified severity, without behavioral disturbance, psychotic disturbance, mood disturbance, and anxiety; I48.91 Unspecified atrial fibrillation; M10.9 Gout, unspecified; Z88.0 Allergy status to penicillin; Z88.6 Allergy status to analgesic agent; Z88.1 Allergy status to other antibiotic agents; Z88.8 Allergy status to other drugs, medicaments and biological substances; Z90.49 Acquired absence of other specified parts of digestive tract; Z90.710 Acquired absence of both cervix and uterus; Z98.890 Other specified postprocedural states; Z96.653 Presence of artificial knee joint, bilateral

== ENCOUNTER → 2022-09-08 | Outpatient (CLI) | payer MEDICARE | END | disposition home or self-care (01) | LOC: RESCLI 13:40 | PROVIDERS: ATTEND Internal Medicine | DX: I11.0 Hypertensive heart disease with heart failure (principal); I50.9 Heart failure, unspecified; E78.5 Hyperlipidemia, unspecified; F03.90 Unspecified dementia, unspecified severity, without behavioral disturbance, psychotic disturbance, mood disturbance, and anxiety; R04.0 Epistaxis; I48.91 Unspecified atrial fibrillation; Z88.0 Allergy status to penicillin; Z88.8 Allergy status to other drugs, medicaments and biological substances; Z98.890 Other specified postprocedural states; Z79.82 Long term (current) use of aspirin; Z79.899 Other long term (current) drug therapy; Z79.01 Long term (current) use of anticoagulants ==

== ENCOUNTER 2022-09-21 02:37 | Emergency (ER) | payer MEDICARE ==
[~2022-09-21] VITALS: Wt 135.2 kg
[2022-09-21 02:45] VITALS: BP 139/70
[2022-09-21] MEDS ORDERED: SALINE NASAL M126 ML NAS (21:53)
== END 2022-09-21 04:11 | disposition home or self-care (01) ==
LOC: ED 02:37
DX: R04.0 Epistaxis (principal); J45.909 Unspecified asthma, uncomplicated; I10 Essential (primary) hypertension; F03.90 Unspecified dementia, unspecified severity, without behavioral disturbance, psychotic disturbance, mood disturbance, and anxiety; M10.9 Gout, unspecified; Z88.0 Allergy status to penicillin; Z88.6 Allergy status to analgesic agent; Z88.8 Allergy status to other drugs, medicaments and biological substances; Z90.49 Acquired absence of other specified parts of digestive tract; Z90.710 Acquired absence of both cervix and uterus; Z90.89 Acquired absence of other organs; Z98.890 Other specified postprocedural states

== ENCOUNTER 2022-09-21 18:12 | Emergency (ER) | payer MEDICARE ==
[~2022-09-21] VITALS: Wt 90.7 kg
[2022-09-21 18:52] VITALS: BP 156/91
[2022-09-21] MEDS ORDERED: SALINE NASAL M126 ML NAS (21:53)
[2022-09-30] MEDS ORDERED: ENTRESTO 24 MG1 EACH PO (14:47)
[2022-09-30] MEDS ORDERED: NAMENDA10 MG PO (14:48)
== END 2022-09-21 22:09 | disposition home or self-care (01) ==
LOC: ED 18:12
DX: T17.1XXA Foreign body in nostril, initial encounter (principal); R51.9 Headache, unspecified; Z88.0 Allergy status to penicillin; Z88.8 Allergy status to other drugs, medicaments and biological substances; Z88.1 Allergy status to other antibiotic agents; Z79.2 Long term (current) use of antibiotics; Z79.899 Other long term (current) drug therapy; Z79.82 Long term (current) use of aspirin; Z90.49 Acquired absence of other specified parts of digestive tract; Z90.711 Acquired absence of uterus with remaining cervical stump; Z90.89 Acquired absence of other organs; Z96.659 Presence of unspecified artificial knee joint; Z95.0 Presence of cardiac pacemaker; X58.XXXA Exposure to other specified factors, initial encounter; Y93.89 Activity, other specified; Y92.89 Other specified places as the place of occurrence of the external cause; Y99.8 Other external cause status

== ENCOUNTER → 2022-10-03 | Day surgery (SDC) | payer MEDICARE ==
[2022-09-30 15:40] LABS: BASO # 0.1 10*3/uL (0.0-0.1); EOS # 0.4 10*3/uL (0.0-0.4); EOS % 4.5 % (1.0-4.0); HEMATOCRIT 39.8 % (37.0-47.0); LYMPH % 37.7 % (27.0-41.0); MEAN CORPUSCULAR HGB 29.4 pg (27.0-31.0); MEAN CORPUSCULAR HGB CONC 31.7 g/dl (33.0-37.0); MEAN PLATELET VOLUME 9.7 fl (9.6-12.3); MONO # 0.7 10*3/uL (0.1-1.0); MONO % 8.4 % (3.0-9.0); NEUT # 3.9 10*3/uL (2.3-7.9); NEUT % 48.2 % (47.0-73.0); PLATELET COUNT AUTOMATED 365 10*3/uL (130-400); RED BLOOD COUNT 4.28 10*6/uL (4.10-5.10); RED CELL DISTRI WIDTH 13.4 % (0-14.5); WHITE BLOOD COUNT 8.1 10*3/uL (4.8-10.8)
[2022-09-30 15:51] LABS: ACT PARTIAL THROMBO TIME 28.5 SECONDS (20.0-32.1)
[~2022-10-03] VITALS: Ht 180.3 cm; Wt 90.7 kg
[~2022-10-03] MED LIST changes: +ENTRESTO 24 MG1 EACH PO; +NAMENDA10 MG PO; +SALINE NASAL M126 ML NAS
[2022-10-03 09:30] VITALS: BP 152/73
[2022-10-03 11:29] VITALS: BP 119/55
[2022-10-03 11:44] VITALS: BP 126/65
[2022-10-03 11:59] VITALS: BP 115/70
[2022-10-03 12:14] VITALS: BP 125/73
[2022-10-03 12:17] VITALS: BP 122/54
== END ==
LOC: SDC 09-30 14:00
PROVIDERS: ATTEND Specialist
DX: R04.0 Epistaxis (principal); I11.0 Hypertensive heart disease with heart failure; I50.9 Heart failure, unspecified; J45.909 Unspecified asthma, uncomplicated; Z98.818 Other dental procedure status

== ENCOUNTER 2022-10-15 00:25 | Emergency (ER) | payer MEDICARE ==
[2022-10-15 00:34] VITALS: BP 153/83
[2022-10-15] MEDS ORDERED: PERCOCET 5-3251 EACH PO (08:02)
[2022-10-15] MEDS ORDERED: SEPTDS PO (08:02)
== END 2022-10-15 01:05 | disposition home or self-care (01) ==
LOC: ED 00:25
DX: R04.0 Epistaxis (principal); J45.909 Unspecified asthma, uncomplicated; I10 Essential (primary) hypertension; F03.90 Unspecified dementia, unspecified severity, without behavioral disturbance, psychotic disturbance, mood disturbance, and anxiety; I48.91 Unspecified atrial fibrillation; M10.9 Gout, unspecified; Z88.0 Allergy status to penicillin; Z88.6 Allergy status to analgesic agent; Z88.1 Allergy status to other antibiotic agents; Z88.8 Allergy status to other drugs, medicaments and biological substances; Z90.49 Acquired absence of other specified parts of digestive tract; Z90.89 Acquired absence of other organs; Z98.890 Other specified postprocedural states; Z90.710 Acquired absence of both cervix and uterus

== ENCOUNTER 2022-10-15 07:14 | Emergency (ER) | payer MEDICARE ==
[~2022-10-15] VITALS: Ht 167.6 cm; Wt 117.9 kg
[2022-10-15 07:26] VITALS: BP 140/76
[2022-10-15] MEDS ORDERED: SEPTDS PO (08:02)
[2022-10-15] MEDS ORDERED: PERCOCET 5-3251 EACH PO (08:02)
== END 2022-10-15 15:05 | disposition home or self-care (01) ==
LOC: ED 07:14
DX: R04.0 Epistaxis (principal); J45.909 Unspecified asthma, uncomplicated; I10 Essential (primary) hypertension; F03.90 Unspecified dementia, unspecified severity, without behavioral disturbance, psychotic disturbance, mood disturbance, and anxiety; M10.9 Gout, unspecified; Z95.5 Presence of coronary angioplasty implant and graft; Z88.0 Allergy status to penicillin; Z88.6 Allergy status to analgesic agent; Z88.8 Allergy status to other drugs, medicaments and biological substances; Z88.1 Allergy status to other antibiotic agents; Z90.49 Acquired absence of other specified parts of digestive tract; Z90.89 Acquired absence of other organs; Z90.710 Acquired absence of both cervix and uterus; Z98.890 Other specified postprocedural states

== ENCOUNTER → 2023-02-09 | Outpatient (CLI) | payer MEDICARE | END | disposition home or self-care (01) | LOC: CARD 11:45 | PROVIDERS: ATTEND Internal Medicine | DX: I08.0 Rheumatic disorders of both mitral and aortic valves (principal); I48.0 Paroxysmal atrial fibrillation ==

== ENCOUNTER → 2023-02-22 | Outpatient (CLI) | payer MEDICARE | END | disposition home or self-care (01) | LOC: RESCLI 00:39 | PROVIDERS: ATTEND Internal Medicine | DX: I11.0 Hypertensive heart disease with heart failure (principal); I50.9 Heart failure, unspecified; E78.5 Hyperlipidemia, unspecified; J34.89 Other specified disorders of nose and nasal sinuses; F03.90 Unspecified dementia, unspecified severity, without behavioral disturbance, psychotic disturbance, mood disturbance, and anxiety; R04.0 Epistaxis; Z88.0 Allergy status to penicillin; Z88.8 Allergy status to other drugs, medicaments and biological substances; Z98.890 Other specified postprocedural states; Z79.82 Long term (current) use of aspirin; Z79.899 Other long term (current) drug therapy ==

== ENCOUNTER 2023-04-05 18:31 | Emergency (ER) | payer MEDICARE ==
[~2023-04-05] VITALS: Wt 135.6 kg
[2023-04-05 18:40] VITALS: BP 156/76
[2023-04-05 19:27] LABS: BASO # 0.1 10*3/uL (0.0-0.1); BASO % 0.9 % (0.0-1.0); EOS # 0.1 10*3/uL (0.0-0.4); EOS % 1.2 % (1.0-4.0); HEMATOCRIT 43.4 % (37.0-47.0); LYMPH # 1.3 10*3/uL (1.3-4.4); LYMPH % 16.5 % (27.0-41.0); MEAN CELL VOLUME 85.1 fl (81.0-99.0); MEAN CORPUSCULAR HGB 27.5 pg (27.0-31.0); MEAN CORPUSCULAR HGB CONC 32.3 g/dl (33.0-37.0); MEAN PLATELET VOLUME 10.6 fl (9.6-12.3); MONO # 0.7 10*3/uL (0.1-1.0); MONO % 9.5 % (3.0-9.0); NEUT # 5.6 10*3/uL (2.3-7.9); NEUT % 71.8 % (47.0-73.0); PLATELET COUNT AUTOMATED 222 10*3/uL (130-400); RED CELL DISTRI WIDTH 14.9 % (0-14.5); WHITE BLOOD COUNT 7.8 10*3/uL (4.8-10.8)
[2023-04-05 19:38] LABS: ACT PARTIAL THROMBO TIME 30.8 SECONDS (20.0-32.1)
[2023-04-05 19:51] LABS: ALKALINE PHOSPHATASE 145 U/L (46-116); BUN 10 mg/dl (9-23); CHLORIDE 102 mmol/L (98-107); SGPT/ALT 17 U/L (5-49); TOTAL PROTEIN 7.2 gm/dL (6.0-8.0)
[2023-04-05] MEDS ORDERED: VIBRAMYCIN100 MG PO (21:06)
== END 2023-04-05 21:39 | disposition home or self-care (01) ==
LOC: ED 18:31
PROVIDERS: Nurse Practitioner Family
DX: J18.9 Pneumonia, unspecified organism (principal); E87.6 Hypokalemia; Z88.0 Allergy status to penicillin; Z88.1 Allergy status to other antibiotic agents; Z88.8 Allergy status to other drugs, medicaments and biological substances; I11.0 Hypertensive heart disease with heart failure; I50.9 Heart failure, unspecified; I48.91 Unspecified atrial fibrillation; E78.5 Hyperlipidemia, unspecified; J45.909 Unspecified asthma, uncomplicated; F03.90 Unspecified dementia, unspecified severity, without behavioral disturbance, psychotic disturbance, mood disturbance, and anxiety; M10.9 Gout, unspecified; R73.9 Hyperglycemia, unspecified; Z90.49 Acquired absence of other specified parts of digestive tract; Z90.710 Acquired absence of both cervix and uterus; Z90.89 Acquired absence of other organs; Z98.890 Other specified postprocedural states; Z96.653 Presence of artificial knee joint, bilateral; Z20.822 Contact with and (suspected) exposure to COVID-19

== ENCOUNTER → 2023-05-11 | Outpatient (CLI) | payer MEDICARE ==
[~2023-05-11] MED LIST changes: +AVPAK AZITHROM250 M1 PO; +PREDNISONE10 MG PO
== END | disposition home or self-care (01) ==
LOC: RESCLI 01:23
PROVIDERS: ATTEND Family Medicine
DX: I11.0 Hypertensive heart disease with heart failure (principal); I50.9 Heart failure, unspecified; E78.5 Hyperlipidemia, unspecified; F03.90 Unspecified dementia, unspecified severity, without behavioral disturbance, psychotic disturbance, mood disturbance, and anxiety; Z79.82 Long term (current) use of aspirin; Z79.2 Long term (current) use of antibiotics; Z79.899 Other long term (current) drug therapy; Z98.890 Other specified postprocedural states; Z88.0 Allergy status to penicillin; Z88.8 Allergy status to other drugs, medicaments and biological substances

== ENCOUNTER 2023-07-31 09:27 | Emergency (ER) | payer MEDICARE ==
[~2023-07-31] VITALS: Ht 180.3 cm; Wt 136.5 kg
[~2023-07-31 09:27] MED LIST changes: +ALDACTONE25 MG PO; +ATORVASTATIN CA40 M1 PO; +PLAVIX75 M1 PO
[2023-07-31 09:30] VITALS: BP 114/69
[2023-07-31] MEDS ORDERED: HYDROCODONE-AC1 EAC1 PO (10:18)
== END 2023-07-31 10:10 | disposition home or self-care (01) ==
LOC: ED 09:27
DX: S52.502A Unspecified fracture of the lower end of left radius, initial encounter for closed fracture (principal); S52.602A Unspecified fracture of lower end of left ulna, initial encounter for closed fracture; E87.6 Hypokalemia; I11.0 Hypertensive heart disease with heart failure; I50.9 Heart failure, unspecified; E78.5 Hyperlipidemia, unspecified; F03.90 Unspecified dementia, unspecified severity, without behavioral disturbance, psychotic disturbance, mood disturbance, and anxiety; J45.909 Unspecified asthma, uncomplicated; I48.91 Unspecified atrial fibrillation; M10.9 Gout, unspecified; R73.9 Hyperglycemia, unspecified; Z88.0 Allergy status to penicillin; Z88.8 Allergy status to other drugs, medicaments and biological substances; Z88.1 Allergy status to other antibiotic agents; Z96.653 Presence of artificial knee joint, bilateral; Z90.49 Acquired absence of other specified parts of digestive tract; Z90.710 Acquired absence of both cervix and uterus; Z90.89 Acquired absence of other organs; W01.0XXA Fall on same level from slipping, tripping and stumbling without subsequent striking against object, initial encounter; Y93.01 Activity, walking, marching and hiking; Y92.009 Unspecified place in unspecified non-institutional (private) residence as the place of occurrence of the external cause; Y99.8 Other external cause status

== ENCOUNTER → 2023-08-09 | Outpatient (CLI) | payer MEDICARE ==
[~2023-08-09] MED LIST changes: +HYDROCODONE-AC1 EAC1 PO
== END | disposition home or self-care (01) ==
LOC: ORTHO 12:01
PROVIDERS: ATTEND Orthopaedic Surgery
DX: S52.612D Displaced fracture of left ulna styloid process, subsequent encounter for closed fracture with routine healing (principal); S52.532D Colles' fracture of left radius, subsequent encounter for closed fracture with routine healing; S52.92XD Unspecified fracture of left forearm, subsequent encounter for closed fracture with routine healing; M79.89 Other specified soft tissue disorders; X58.XXXD Exposure to other specified factors, subsequent encounter

== ENCOUNTER → 2023-08-23 | Outpatient (CLI) | payer MEDICARE | END | disposition home or self-care (01) | LOC: ORTHO 03:05 | PROVIDERS: ATTEND Orthopaedic Surgery | DX: S52.532D Colles' fracture of left radius, subsequent encounter for closed fracture with routine healing (principal); X58.XXXD Exposure to other specified factors, subsequent encounter ==

== ENCOUNTER 2024-01-12 19:18 | Emergency (ER) | payer MEDICARE ==
[~2024-01-12] VITALS: Ht 180.3 cm; Wt 136.1 kg
[2024-01-12 19:36] VITALS: BP 150/81
== END 2024-01-12 23:38 | disposition home or self-care (01) ==
LOC: ED 19:18
DX: R09.89 Other specified symptoms and signs involving the circulatory and respiratory systems (principal); F45.8 Other somatoform disorders; F03.90 Unspecified dementia, unspecified severity, without behavioral disturbance, psychotic disturbance, mood disturbance, and anxiety; J45.909 Unspecified asthma, uncomplicated; I11.0 Hypertensive heart disease with heart failure; I50.9 Heart failure, unspecified; I48.91 Unspecified atrial fibrillation; M10.9 Gout, unspecified; Z88.0 Allergy status to penicillin; Z88.8 Allergy status to other drugs, medicaments and biological substances; Z88.1 Allergy status to other antibiotic agents; Z90.49 Acquired absence of other specified parts of digestive tract; Z90.710 Acquired absence of both cervix and uterus; Z90.89 Acquired absence of other organs; Z98.890 Other specified postprocedural states; Z96.653 Presence of artificial knee joint, bilateral; Z53.29 Procedure and treatment not carried out because of patient's decision for other reasons

== ENCOUNTER → 2024-05-31 | Outpatient (CLI) | payer MEDICARE | END | disposition home or self-care (01) | LOC: RESCLI 02-01 02:37 | PROVIDERS: ATTEND Student in an Organized Health Care Education/Training Program | DX: I50.9 Heart failure, unspecified (principal); F03.90 Unspecified dementia, unspecified severity, without behavioral disturbance, psychotic disturbance, mood disturbance, and anxiety; I48.91 Unspecified atrial fibrillation; Z79.899 Other long term (current) drug therapy; Z98.890 Other specified postprocedural states; Z88.0 Allergy status to penicillin; Z88.1 Allergy status to other antibiotic agents; Z88.8 Allergy status to other drugs, medicaments and biological substances ==

== ENCOUNTER → 2024-06-01 | Outpatient (CLI) | payer MEDICARE ==
[2024-06-01 09:26] LABS: BASO # 0.1 10*3/uL (0.0-0.1); BASO % 1.1 % (0.0-1.0); EOS # 0.2 10*3/uL (0.0-0.4); EOS % 2.2 % (1.0-4.0); HEMATOCRIT 45.7 % (37.0-47.0); MEAN CELL VOLUME 87.7 fl (81.0-99.0); MEAN CORPUSCULAR HGB 27.4 pg (27.0-31.0); MEAN CORPUSCULAR HGB CONC 31.3 g/dl (33.0-37.0); MEAN PLATELET VOLUME 9.4 fl (9.6-12.3); MONO # 0.5 10*3/uL (0.1-1.0); MONO % 6.7 % (3.0-9.0); NEUT # 4.9 10*3/uL (2.3-7.9); NEUT % 64.1 % (47.0-73.0); PLATELET COUNT AUTOMATED 285 10*3/uL (130-400); RED BLOOD COUNT 5.21 10*6/uL (4.10-5.10); RED CELL DISTRI WIDTH 15.9 % (0-14.5); WHITE BLOOD COUNT 7.6 10*3/uL (4.8-10.8)
[2024-06-01 09:39] LABS: ALKALINE PHOSPHATASE 139 U/L (46-116); BUN 10 mg/dl (9-23); CHLORIDE 102 mmol/L (98-107); CHOLESTEROL 162 mg/dL (<200); LDL CHOLESTEROL 100 mg/dL (9-159); POTASSIUM 3.3 mmol/L (3.4-5.1); TOTAL PROTEIN 6.8 gm/dL (6.0-8.0); TRIGLYCERIDES 108 mg/dl (<150)
[2024-06-01 09:59] LABS: SGPT/ALT < 7 U/L (5-49)
[2024-06-01 10:42] LABS: VITAMIN D, 25-HYDROXY 24.9 ng/mL (30-100)
== END | disposition home or self-care (01) ==
LOC: LAB 08:40
PROVIDERS: Student in an Organized Health Care Education/Training Program; ATTEND Student in an Organized Health Care Education/Training Program
DX: I48.91 Unspecified atrial fibrillation (principal); F03.90 Unspecified dementia, unspecified severity, without behavioral disturbance, psychotic disturbance, mood disturbance, and anxiety; I50.9 Heart failure, unspecified

== ENCOUNTER → 2024-10-04 | Outpatient (CLI) | payer MEDICARE ==
[2024-10-04 14:27] LABS: POTASSIUM 4.1 mmol/L (3.4-5.1)
== END | disposition home or self-care (01) ==
LOC: LAB 02:05 → RESCLI 02:05
PROVIDERS: Student in an Organized Health Care Education/Training Program; ATTEND Internal Medicine
DX: I50.9 Heart failure, unspecified (principal)

== ENCOUNTER 2024-10-13 14:33 | Emergency (ER) | payer MEDICARE ==
[~2024-10-13] VITALS: Ht 180.3 cm; Wt 136.1 kg
[2024-10-13 14:39] VITALS: BP 125/67
[2024-10-13] MEDS ORDERED: MORPHINE Sulfate 2 MG/ML SYR IM ONE (17:15)
== END 2024-10-13 17:42 | disposition home or self-care (01) ==
LOC: ED 14:33
DX: M25.552 Pain in left hip (principal); M54.50 Low back pain, unspecified; R07.81 Pleurodynia; G30.9 Alzheimer's disease, unspecified; F02.80 Dementia in other diseases classified elsewhere, unspecified severity, without behavioral disturbance, psychotic disturbance, mood disturbance, and anxiety; Z88.0 Allergy status to penicillin; Z88.8 Allergy status to other drugs, medicaments and biological substances; Z79.82 Long term (current) use of aspirin; Z79.899 Other long term (current) drug therapy; Z90.49 Acquired absence of other specified parts of digestive tract; Z90.89 Acquired absence of other organs; Z96.653 Presence of artificial knee joint, bilateral; Z95.0 Presence of cardiac pacemaker; W01.0XXA Fall on same level from slipping, tripping and stumbling without subsequent striking against object, initial encounter; Y93.79 Activity, other specified sports and athletics; Y92.89 Other specified places as the place of occurrence of the external cause; Y99.8 Other external cause status